=== PATIENT | female | born 1965 | race African-American/Black ===

== ENCOUNTER 2025-06-05 16:20 | Inpatient (IN) | payer BC, MEDICAID ==
[~2025-06-05] VITALS: Ht 91.4 cm; Wt 72.6 kg
[~2025-06-05 16:20] MED LIST: ASPI-1406 PO; ATOR20TA PO; COR25 PO; FURO40TA5 PO; HUM100IN SQ; HYDR50TA39 PO; ISOS60TA76 PO; NEED-122 SQ; NIFE90TA60 PO
[2025-06-05 16:24] VITALS: O2SAT 98
[2025-06-05 17:40] LABS: BASOPHILS % 0.4 % (0.0-2.0); EOSINOPHILS % 2.2 % (0.0-5.0); HEMATOCRIT. 25.8 % (36.0-48.0); HEMOGLOBIN. 8.3 g/dL (12.0-16.0); LYMPHOCYTES % 11.7 % (20.0-50.0); MEAN PLATELET VOLUME 8.1 fl (7.4-10.4); MONOCYTES % 5.9 % (2.0-8.0); NEUTROPHILS % 79.8 % (40.0-76.0); PLATELET 364 x1000/uL (130-400); RED BLOOD CELL COUNT 2.85 mill/uL (4.2-5.4); RED CELL DISTRIBUTION WIDTH 17.3 % (11.6-14.6)
[2025-06-05 18:05] LABS: CREATININE 2.9 mg/dL (0.6-1.0); UREA NITROGEN BLOOD 22 mg/dL (9-23)
[2025-06-05 18:07] LABS: ASPARTATE AMINOTRANSFERASE 14 IU/L (<34); BILIRUBIN TOTAL < 0.2 mg/dL (0.1-1.0); PROTEIN TOTAL 7.7 g/dL (6.0-8.3)
[2025-06-05] MEDS: MORPHINE SULFATE 4 MG/ML INJ (FOR IV/IM USE) IV ONE (18:14)
[2025-06-05] MEDS ORDERED: ONDANSETRON HCL 4MG/2ML INJ IV PRN (19:15)
[2025-06-05] MEDS ORDERED: DOCUSATE SODIUM 100MG CAPSULE PO PRN (19:15)
[2025-06-05] MEDS ORDERED: ACETAMINOPHEN 325MG TABLET PO PRN (19:15)
[2025-06-05] MEDS ORDERED: IPRATROPIUM/ALBUTEROL 0.5-3(2.5)MG/3ML NEB HHN PRN (19:15)
[2025-06-05] MEDS ORDERED: GUAIFENESIN 200MG/10ML SUGAR FREE UDC PO PRN (19:15)
[2025-06-05] MEDS ORDERED: SODIUM CHLORIDE 0.9% 1,000 ML IV SCH (19:15)
[2025-06-05] MEDS ORDERED: MAGNESIUM/ALUMINUM HYDROXIDE/SIMETHICONE 30ML UDC PO PRN (19:15)
[2025-06-05 20:00] VITALS: BP 161/60; PULSE 86; RESP 20; TEMP 36.3; O2SAT 97
[2025-06-05 20:54] LABS: TROPONIN I HIGH SENSITIVITY 20 ng/L (3.0-34)
[2025-06-05 20:55] LABS: PHOSPHORUS 1.7 mg/dL (2.5-4.9)
[2025-06-05] MEDS ORDERED: HYDRALAZINE 20MG/ML VIAL IV PRN (21:15)
[2025-06-05] MEDS: VANCOMYCIN 1.5GM/250ML IV SCH (21:50)
[2025-06-05] MEDS: PIPERACILLIN/TAZO 3.375G/50ML 50 ML IV SCH (21:50)
[2025-06-05] MEDS: HYDRALAZINE HCL 50MG TABLET PO SCH (21:55)
[2025-06-05] MEDS: GABAPENTIN 100MG CAPSULE PO SCH (21:56)
[2025-06-05] MEDS: CLONIDINE 0.1MG TABLET PO SCH (21:57)
[2025-06-05] MEDS: DEXTROSE 50% WATER 50ML SYRINGE IV SCH (21:58)
[2025-06-05] MEDS: INSULIN GLARGINE 100 UNITS/ML SUBCUT SCH (22:00)
[2025-06-05] MEDS ORDERED: AMLODIPINE 5MG TABLET PO SCH (22:00)
[2025-06-05] MEDS ORDERED: HYDRALAZINE HCL 100MG TABLET PO SCH (22:00)
[2025-06-05] MEDS: POTASSIUM CHLORIDE 20MEQ TABLET SR PO NR (22:01)
[2025-06-06] VITALS (7 sets, daily range): BP systolic 106–161; BP diastolic 48–80; PULSE 61–87; RESP 18–21; TEMP 36.1–37.2; O2SAT 97–99
[2025-06-06] MEDS: MORPHINE SULFATE 2 MG/ML INJ (NOT FOR IM USE) IV SCH (00:04)
[2025-06-06] MEDS: CARVEDILOL 12.5MG TABLET PO SCH (00:22)
[2025-06-06] MEDS: NIFEDIPINE XL 60MG TAB PO SCH (00:22)
[2025-06-06] MEDS: HYDROCODONE/ACETAMINOPHEN 5/325MG TABLET PO NR (06:15)
[2025-06-06] MEDS: BLOOD SUGAR DIAGNOSTIC STRIP TEST SCH (06:26)
[2025-06-06] MEDS: INSULIN LISPRO 100 UNITS/ML SUBCUT SCH (07:50)
[2025-06-06] MEDS: ASPIRIN 81MG TABLET PO SCH (09:05)
[2025-06-06] MEDS: HYDRALAZINE HCL 50MG TABLET PO SCH (09:49)
[2025-06-06] MEDS: INSULIN GLARGINE 100 UNITS/ML SUBCUT SCH (09:51)
[2025-06-06] MEDS: PIPERACILLIN/TAZO 3.375G/50ML IV SCH (10:00)
[2025-06-06] MEDS ORDERED: NALOXONE HCL 0.4MG/ML VIAL IV PRN (13:45)
[2025-06-06] MEDS: HYDROCODONE/ACETAMINOPHEN 5/325MG TABLET PO PRN (15:21)
[2025-06-06 18:30] LABS: BASOPHILS % 0.4 % (0.0-2.0); EOSINOPHILS % 3.1 % (0.0-5.0); HEMATOCRIT. 23.6 % (36.0-48.0); HEMOGLOBIN. 7.7 g/dL (12.0-16.0); LYMPHOCYTES % 10.6 % (20.0-50.0); MEAN PLATELET VOLUME 8.3 fl (7.4-10.4); MONOCYTES % 6.9 % (2.0-8.0); NEUTROPHILS % 79.0 % (40.0-76.0); PLATELET 378 x1000/uL (130-400); RED BLOOD CELL COUNT 2.62 mill/uL (4.2-5.4); RED CELL DISTRIBUTION WIDTH 16.9 % (11.6-14.6)
[2025-06-06 18:52] LABS: LDL CHOLESTEROL 88.0 mg/dL (5-100); TRIGLYCERIDE 131.0 mg/dL (0-150); UREA NITROGEN BLOOD 34.0 mg/dL (9-23)
[2025-06-06 18:54] LABS: PHOSPHORUS 3.9 mg/dL (2.5-4.9)
[2025-06-06 18:56] LABS: T4 FREE 1.22 ng/dL (0.89-1.76)
[2025-06-06 18:57] LABS: CREATININE 4.1 mg/dL (0.6-1.0)
[2025-06-06] MEDS: MORPHINE SULFATE 2 MG/ML INJ (NOT FOR IM USE) IV PRN (20:18)
[2025-06-06] MEDS ORDERED: SULFAMETHOXAZOLE/TRIMETHOPRIM 800/160MG TABLET PO SCH (21:00)
[2025-06-06] MEDS: ATORVASTATIN CALCIUM 40MG TABLET PO SCH (21:13)
[2025-06-06] MEDS ORDERED: POTASSIUM PHOSPHATE 20 MMOL in DEXT 5% WATER 243.3333 ML IV ONE (22:15)
[2025-06-06] MEDS ORDERED: POTASSIUM CHLORIDE 20MEQ/PACKET PO ONE (22:15)
[2025-06-07] VITALS (15 sets, daily range): BP systolic 108–175; BP diastolic 30–86; PULSE 62–96; RESP 16–20; TEMP 36.1–36.8; O2SAT 95–99
[2025-06-07 08:05] LABS: BASOPHILS % 0.4 % (0.0-2.0); EOSINOPHILS % 3.0 % (0.0-5.0); HEMATOCRIT. 22.7 % (36.0-48.0); HEMOGLOBIN. 7.3 g/dL (12.0-16.0); LYMPHOCYTES % 13.8 % (20.0-50.0); MEAN PLATELET VOLUME 8.3 fl (7.4-10.4); MONOCYTES % 8.9 % (2.0-8.0); NEUTROPHILS % 73.9 % (40.0-76.0); PLATELET 356 x1000/uL (130-400); RED BLOOD CELL COUNT 2.51 mill/uL (4.2-5.4); RED CELL DISTRIBUTION WIDTH 17.2 % (11.6-14.6)
[2025-06-07 08:09] LABS: CREATININE 4.7 mg/dL (0.6-1.0); UREA NITROGEN BLOOD 40 mg/dL (9-23)
[2025-06-07 08:10] LABS: TROPONIN I HIGH SENSITIVITY 18 ng/L (3.0-34)
[2025-06-07 08:11] LABS: PHOSPHORUS 4.6 mg/dL (2.5-4.9)
[2025-06-07 08:20] LABS: INR 1.0
[2025-06-07 08:44] LABS: C REACTIVE PROTEIN HIGH SENS 74.91 mg/l (<1.00)
[2025-06-07 09:04] LABS: ERYTHROCYTE SEDIMENTATION RATE 106 mm/hr (0-30)
[2025-06-07] MEDS: PANTOPRAZOLE 40MG DR TABLET PO SCH (09:59)
[2025-06-07 14:26] LABS: CLARITY URINE CLOUDY (CLEAR); COLOR URINE YELLOW (YELLOW); GLUCOSE URINE 1+ (NEGATIVE); KETONES URINE NEGATIVE (NEGATIVE); LEUKOCYTE ESTERASE URINE 1+ (NEGATIVE); NITRITE URINE NEGATIVE (NEGATIVE); OCCULT BLOOD URINE NEGATIVE (NEGATIVE); PH URINE 6.5 (4.5-8.0); PROTEIN URINE 4+ (NEGATIVE); SPECIFIC GRAVITY URINE 1.019 (1.005-1.030); UROBILINOGEN URINE 0.2 E.U./dL (0.2-1.0)
[2025-06-07 15:03] LABS: *AMPHETAMINES SCREEN URINE NEGATIVE (NEGATIVE); *BARBITURATES SCREEN URINE NEGATIVE (NEGATIVE); *BENZODIAZEPINES SCREEN URINE NEGATIVE (NEGATIVE); *COCAINE SCREEN URINE NEGATIVE (NEGATIVE); CANNABINOID URINE SCREEN NEGATIVE (NEGATIVE); ECSTASY MDMA SCREEN URINE NEGATIVE (NEGATIVE); METHADONE URINE SCREEN NEGATIVE (NEGATIVE); OPIATES URINE SCREEN PRESUMPTIVE POSITIVE (NEGATIVE); PHENCYCLIDINE URINE SCREEN NEGATIVE (NEGATIVE)
[2025-06-07 15:10] LABS: RBC URINE 0-2 /hpf (0-2); SQUAMOUS EPITHELIAL CELL URINE 3+ /lpf (RARE/1+)
[2025-06-07 15:13] LABS: BACTERIA URINE 1+; YEAST URINE 1+
[2025-06-07] MEDS: PREDNISONE 20MG TABLET PO NR (20:05)
[2025-06-07] MEDS: NIFEDIPINE XL 30MG TAB PO SCH (21:00)
[2025-06-07] MEDS: CARVEDILOL 6.25 MG TABLET PO SCH (21:00)
[2025-06-07] MEDS: EPOETIN ALFA-EPBX 4,000 UNITS/ML VIAL SUBCUT SCH (21:00)
[2025-06-07] MEDS: HYDROCODONE/ACETAMINOPHEN 10/325MG TABLET PO PRN (21:27)
[2025-06-08] VITALS: BP_SYST 168; BP_SYST 179; BP_DIAS 58; BP_DIAS 88; PULSE 84; PULSE 89; RESP 18; TEMP 36.5; TEMP 37.3; O2SAT 97; O2SAT 98
[2025-06-08] MEDS: PREDNISONE 20MG TABLET PO NR ×2 (02:16→08:16)
[2025-06-08 04:00] VITALS: BP 153/62; PULSE 78; RESP 18; TEMP 36.4; O2SAT 97
[2025-06-08 08:00] VITALS: BP 130/71; PULSE 83; RESP 20; TEMP 36.4; O2SAT 96
[2025-06-08] MEDS: DIPHENHYDRAMINE 50MG/ML VIAL IV NR (08:16)
[2025-06-08] MEDS: INSULIN REGULAR (HUMULIN R) 1000UNITS/10ML VIAL IV SCH ×2 (08:17→21:27)
[2025-06-08] MEDS: MORPHINE SULFATE 2 MG/ML INJ (NOT FOR IM USE) IV PRN (11:51)
[2025-06-08 12:30] LABS: HEMATOCRIT. 22.8 % (36.0-48.0); HEMOGLOBIN. 7.1 g/dL (12.0-16.0); MEAN PLATELET VOLUME 8.6 fl (7.4-10.4); PLATELET 322 x1000/uL (130-400); RED BLOOD CELL COUNT 2.45 mill/uL (4.2-5.4); RED CELL DISTRIBUTION WIDTH 17.3 % (11.6-14.6)
[2025-06-08 13:07] LABS: UREA NITROGEN BLOOD 33 mg/dL (9-23)
[2025-06-08 13:09] LABS: PHOSPHORUS 2.6 mg/dL (2.5-4.9)
[2025-06-08 14:48] LABS: CREATININE 4.1 mg/dL (0.6-1.0)
[2025-06-08] MEDS: HYDRALAZINE HCL 50MG TABLET PO SCH (14:51)
[2025-06-08 15:29] LABS: BAND% 5.0 % (1.0-6.0); LYMPHOCYTES % MANUAL 2.0 % (20.0-60.0); MONOCYTES % MANUAL 3.0 % (2.0-8.0); NEUTROPHILS % MANUAL 90.0 % (45.0-75.0)
[2025-06-08 15:30] LABS: PLATELET ESTIMATE NORMAL
[2025-06-08 16:00] VITALS: BP 161/67; PULSE 78; RESP 20; TEMP 36.4; O2SAT 88
[2025-06-08] MEDS: SODIUM HYPOCHLORITE 0.125% 473ML SOLUTION TOP SCH ×2 (17:05→18:29)
[2025-06-08 18:07] VITALS: BP 162/54; PULSE 81; RESP 20; TEMP 36.3; O2SAT 94
[2025-06-08] MEDS ORDERED: CALCIUM GLUCONATE 100MG/ML 10ML VIAL IV NR (18:30)
[2025-06-08] MEDS: SODIUM BICARBONATE 650MG TABLET PO NR (18:40)
[2025-06-08 20:00] VITALS: BP 139/65; PULSE 59; RESP 18; TEMP 36.3; O2SAT 87
[2025-06-09] VITALS (10 sets, daily range): BP systolic 112–166; BP diastolic 48–78; PULSE 74–88; RESP 17–21; TEMP 36.114–36.6; O2SAT 95–97
[2025-06-09] MEDS: DIPHENHYDRAMINE 50MG/ML VIAL IV PRN (00:36)
[2025-06-09] MEDS: MORPHINE SULFATE 2 MG/ML INJ (NOT FOR IM USE) IV NR (05:43)
[2025-06-09 08:25] LABS: UREA NITROGEN BLOOD 53 mg/dL (9-23)
[2025-06-09 08:27] LABS: PHOSPHORUS 4.0 mg/dL (2.5-4.9)
[2025-06-09 08:57] LABS: CREATININE 5.2 mg/dL (0.6-1.0)
[2025-06-09] MEDS: DEXTROSE 50% WATER 50ML SYRINGE IV SCH (10:00)
[2025-06-09] MEDS: INSULIN REGULAR (HUMULIN R) 1000UNITS/10ML VIAL IV SCH (10:00)
[2025-06-09] MEDS ORDERED: ALBUTEROL (0.083%) 2.5MG/3ML NEB HHN SCH (10:00)
[2025-06-09 10:15] LABS: T4 FREE 1.09 ng/dL (0.89-1.76)
[2025-06-09 10:16] LABS: TRIGLYCERIDE 65.0 mg/dL (0-150)
[2025-06-09 10:17] LABS: LDL CHOLESTEROL 82.0 mg/dL (5-100)
[2025-06-09] MEDS: SODIUM ZIRCONIUM CYCLOSILICATE 10GM/PACKET PO SCH (10:28)
[2025-06-09] MEDS: CEFTRIAXONE 1GM/50ML 50 ML IV SCH (15:40)
[2025-06-09] MEDS: HYDRALAZINE HCL 50MG TABLET PO SCH (15:40)
[2025-06-09] MEDS: EPOETIN ALFA-EPBX 4,000 UNITS/ML VIAL SUBCUT SCH (21:29)
[2025-06-09] MEDS: INSULIN GLARGINE 100 UNITS/ML SUBCUT SCH (21:40)
[2025-06-09 23:48] LABS: CREATINE KINASE MB FRACTION 1.7 ng/mL (0.5-3.6); TROPONIN I HIGH SENSITIVITY 16.0 ng/L (3.0-34)
[2025-06-10] VITALS: BP 121/58; PULSE 81; RESP 18; TEMP 36.6; O2SAT 97
[2025-06-10 04:00] VITALS: BP 120/60; PULSE 80; RESP 17; TEMP 36.6; O2SAT 98
[2025-06-10 08:00] VITALS: BP 161/53; PULSE 72; RESP 20; TEMP 35.7; O2SAT 96
[2025-06-10 08:54] LABS: BASOPHILS % 0.6 % (0.0-2.0); EOSINOPHILS % 1.6 % (0.0-5.0); HEMATOCRIT. 23.2 % (36.0-48.0); HEMOGLOBIN. 7.4 g/dL (12.0-16.0); LYMPHOCYTES % 18.6 % (20.0-50.0); MEAN PLATELET VOLUME 8.1 fl (7.4-10.4); MONOCYTES % 7.8 % (2.0-8.0); NEUTROPHILS % 71.4 % (40.0-76.0); PLATELET 367 x1000/uL (130-400); RED BLOOD CELL COUNT 2.57 mill/uL (4.2-5.4); RED CELL DISTRIBUTION WIDTH 17.4 % (11.6-14.6)
[2025-06-10 09:05] LABS: CREATINE KINASE MB FRACTION 1.2 ng/mL (0.5-3.6); TROPONIN I HIGH SENSITIVITY 18.0 ng/L (3.0-34)
[2025-06-10 09:09] LABS: CREATININE 4.6 mg/dL (0.6-1.0)
[2025-06-10 09:10] LABS: UREA NITROGEN BLOOD 43 mg/dL (9-23)
[2025-06-10 09:12] LABS: PHOSPHORUS 4.3 mg/dL (2.5-4.9)
[2025-06-10] MEDS: INSULIN GLARGINE 100 UNITS/ML SUBCUT SCH (09:59)
[2025-06-10 12:00] VITALS: BP 131/70; RESP 20; TEMP 34.2; O2SAT 95
[2025-06-10] MEDS: MORPHINE SULFATE 2 MG/ML INJ (NOT FOR IM USE) IV PRN (15:41)
[2025-06-10 16:00] VITALS: BP 125/49; PULSE 79; RESP 20; TEMP 36.3; O2SAT 97
[2025-06-10 20:00] VITALS: BP 132/63; PULSE 75; RESP 20; TEMP 36.2; O2SAT 97
[2025-06-11] VITALS (15 sets, daily range): BP systolic 128–162; BP diastolic 47–82; PULSE 57–89; RESP 16–20; TEMP 35.9–36.55848; O2SAT 95–99
[2025-06-11] MEDS: HYDROCODONE/ACETAMINOPHEN 10/325MG TABLET PO PRN (06:16)
[2025-06-11] MEDS: FAMOTIDINE 20MG TABLET PO SCH (08:35)
[2025-06-11 08:58] LABS: PLATELET 384 x1000/uL (130-400); RED BLOOD CELL COUNT 2.54 mill/uL (4.2-5.4); RED CELL DISTRIBUTION WIDTH 17.4 % (11.6-14.6)
[2025-06-11 09:20] LABS: UREA NITROGEN BLOOD 57 mg/dL (9-23)
[2025-06-11 09:23] LABS: PHOSPHORUS 5.5 mg/dL (2.5-4.9)
[2025-06-11 09:26] LABS: CREATININE 6.0 mg/dL (0.6-1.0)
[2025-06-11] MEDS: SODIUM ZIRCONIUM CYCLOSILICATE 10GM/PACKET PO NR (10:23)
[2025-06-11] MEDS ORDERED: SODIUM ZIRCONIUM CYCLOSILICATE 10GM/PACKET PO SCH (10:30)
[2025-06-11] MEDS: POLYETHYLENE GLYCOL 3350 (17GM) 1 DOSE PACK PO SCH (21:00)
[2025-06-12] VITALS: BP 170/60; PULSE 86; RESP 19; TEMP 36.6; O2SAT 97
[2025-06-12 04:00] VITALS: BP 164/81; PULSE 83; RESP 17; TEMP 37.1; O2SAT 98
[2025-06-12] MEDS: DEXTROSE 50% WATER 50ML SYRINGE IV PRN (06:36)
[2025-06-12 08:00] VITALS: BP 167/66; PULSE 81; RESP 20; TEMP 36.1; O2SAT 100
[2025-06-12] MEDS: NIFEDIPINE XL 30MG TAB PO SCH (08:59)
[2025-06-12] MEDS ORDERED: REGADENOSON 0.4 MG/5 ML IV NR (11:30)
[2025-06-12 12:00] VITALS: BP 181/63; PULSE 77; RESP 20; TEMP 36.3; O2SAT 100
[2025-06-12 16:00] VITALS: BP 177/70; PULSE 72; RESP 20; TEMP 36.3; O2SAT 100
[2025-06-12 19:07] LABS: BASOPHILS % 0.6 % (0.0-2.0); EOSINOPHILS % 3.2 % (0.0-5.0); HEMATOCRIT. 22.4 % (36.0-48.0); HEMOGLOBIN. 7.1 g/dL (12.0-16.0); LYMPHOCYTES % 11.7 % (20.0-50.0); MEAN PLATELET VOLUME 8.0 fl (7.4-10.4); MONOCYTES % 8.0 % (2.0-8.0); NEUTROPHILS % 76.5 % (40.0-76.0); PLATELET 355 x1000/uL (130-400); RED BLOOD CELL COUNT 2.43 mill/uL (4.2-5.4); RED CELL DISTRIBUTION WIDTH 17.4 % (11.6-14.6)
[2025-06-12 19:21] LABS: UREA NITROGEN BLOOD 47.0 mg/dL (9-23)
[2025-06-12 19:39] LABS: CREATININE 5.1 mg/dL (0.6-1.0)
[2025-06-12 20:00] VITALS: BP 136/68; PULSE 92; RESP 20; TEMP 36.3; O2SAT 100
[2025-06-12] MEDS: NIFEDIPINE XL 60MG TAB PO SCH (21:10)
[2025-06-12] MEDS: INSULIN GLARGINE 100 UNITS/ML SUBCUT SCH (22:00)
[2025-06-13] VITALS (21 sets, daily range): BP systolic 101–161; BP diastolic 37–86; PULSE 76–99; RESP 16–20; TEMP 35.8–36.9474; O2SAT 95–98
[2025-06-13 06:50] LABS: BASOPHILS % 0.5 % (0.0-2.0); EOSINOPHILS % 3.3 % (0.0-5.0); HEMATOCRIT. 21.6 % (36.0-48.0); LYMPHOCYTES % 11.8 % (20.0-50.0); MEAN PLATELET VOLUME 8.2 fl (7.4-10.4); MONOCYTES % 7.4 % (2.0-8.0); NEUTROPHILS % 77.0 % (40.0-76.0); PLATELET 341 x1000/uL (130-400); RED BLOOD CELL COUNT 2.36 mill/uL (4.2-5.4); RED CELL DISTRIBUTION WIDTH 17.5 % (11.6-14.6)
[2025-06-13 07:22] LABS: UREA NITROGEN BLOOD 48.0 mg/dL (9-23)
[2025-06-13 07:24] LABS: CREATININE 5.5 mg/dL (0.6-1.0)
[2025-06-13 07:48] LABS: HEMOGLOBIN. 7.0 g/dL (12.0-16.0)
[2025-06-13] MEDS ORDERED: REGADENOSON 0.4 MG/5 ML IV ONE (08:22)
[2025-06-13] MEDS: NIFEDIPINE XL 60MG TAB PO SCH (09:00)
[2025-06-13] MEDS: INSULIN GLARGINE 100 UNITS/ML SUBCUT SCH (10:00)
[2025-06-13 12:24] LABS: HEPATITIS A AB IGM NEGATIVE (Negative); HEPATITIS B CORE AB IGM NEGATIVE (Negative)
[2025-06-13 12:25] LABS: HEPATITIS C AB NON REACTIVE (Neg) (Negative)
[2025-06-13] MEDS: HYDRALAZINE HCL 100MG TABLET PO SCH (22:32)
[2025-06-13] MEDS: DIPHENHYDRAMINE 50MG/ML VIAL IV NR (22:57)
[2025-06-14] VITALS (24 sets, daily range): BP systolic 129–201; BP diastolic 60–109; PULSE 86–95; RESP 16–20; TEMP 35.8–36.7; O2SAT 97–98
[2025-06-14] MEDS: INSULIN LISPRO 100 UNITS/ML SUBCUT SCH
[2025-06-14] MEDS: DEXT 5%/0.9% NACL 1,000 ML IV SCH
[2025-06-14] MEDS: BLOOD SUGAR DIAGNOSTIC STRIP TEST SCH (00:33)
[2025-06-14] MEDS: HYDRALAZINE 10 MG in SODIUM CHLORIDE 0.9% 49.5 ML IV PRN (04:40)
[2025-06-14] MEDS ORDERED: POLYMYXIN B SULFATE 500000 UNITS/VIAL ONE (07:15)
[2025-06-14] MEDS ORDERED: LIDOCAINE HCL/EPINEPHRINE 1%-EPI 1:100,000 20ML VIAL ONE (07:16)
[2025-06-14] MEDS ORDERED: BACITRACIN 14GM TUBE TOP ONE (07:16)
[2025-06-14] MEDS ORDERED: DOPAMINE 400MG/250ML PREMIX 250 ML IV ONE (07:26)
[2025-06-14 07:32] LABS: CREATININE 4.5 mg/dL (0.6-1.0); UREA NITROGEN BLOOD 26 mg/dL (9-23)
[2025-06-14 07:34] LABS: PHOSPHORUS 6.3 mg/dL (2.5-4.9)
[2025-06-14 08:53] LABS: BASOPHILS % 0.8 % (0.0-2.0); EOSINOPHILS % 2.0 % (0.0-5.0); HEMATOCRIT. 30.3 % (36.0-48.0); HEMOGLOBIN. 10.2 g/dL (12.0-16.0); LYMPHOCYTES % 10.3 % (20.0-50.0); MEAN PLATELET VOLUME 8.1 fl (7.4-10.4); MONOCYTES % 7.3 % (2.0-8.0); NEUTROPHILS % 79.6 % (40.0-76.0); PLATELET 360 x1000/uL (130-400); RED BLOOD CELL COUNT 3.54 mill/uL (4.2-5.4); RED CELL DISTRIBUTION WIDTH 20.5 % (11.6-14.6)
[2025-06-14] MEDS: SODIUM POLYSTYRENE SULFONATE 15 G/60 ML BOT PO NR (10:23)
[2025-06-14] MEDS: LACTULOSE 20G/30ML UDC PO SCH (10:23)
[2025-06-14] MEDS ORDERED: LIDOCAINE HCL 1% 10 MG/ML 10ML VIAL IJ SCH (12:00)
[2025-06-14] MEDS: ACETAMINOPHEN 325MG TABLET PO PRN (12:23)
[2025-06-14] MEDS ORDERED: HYDRALAZINE 20MG/ML VIAL IV PRN (15:30)
[2025-06-14] MEDS: SEVELAMER CARBONATE 800 MG TABLET PO SCH (15:35)
[2025-06-15] VITALS: BP 198/98; PULSE 92; RESP 18; TEMP 36.7; O2SAT 98
[2025-06-15 04:00] VITALS: BP 160/85; PULSE 100; RESP 18; TEMP 36.8; O2SAT 96
[2025-06-15 07:20] LABS: PLATELET 327 x1000/uL (130-400); RED BLOOD CELL COUNT 3.51 mill/uL (4.2-5.4); RED CELL DISTRIBUTION WIDTH 20.4 % (11.6-14.6)
[2025-06-15 07:37] LABS: CREATININE 3.2 mg/dL (0.6-1.0); UREA NITROGEN BLOOD 19 mg/dL (9-23)
[2025-06-15 07:39] LABS: PHOSPHORUS 4.0 mg/dL (2.5-4.9)
[2025-06-15 08:07] VITALS: BP 138/70; PULSE 100; RESP 20; TEMP 36.8; O2SAT 100
[2025-06-15] MEDS: POTASSIUM CHLORIDE 20MEQ/PACKET PO NR (08:21)
[2025-06-15] MEDS ORDERED: *PATIENT'S OWN MEDICATION STORAGE XX SCH (09:30)
[2025-06-15 12:00] VITALS: BP 179/89; PULSE 97; RESP 20; TEMP 36.7; O2SAT 100
[2025-06-15] MEDS: CEFTRIAXONE 2GM/50ML 50 ML IV SCH (13:19)
[2025-06-15 16:00] VITALS: BP 173/74; PULSE 100; RESP 20; TEMP 36.9; O2SAT 97
[2025-06-15 16:51] LABS: CREATININE 3.5 mg/dL (0.6-1.0); UREA NITROGEN BLOOD 20.0 mg/dL (9-23)
[2025-06-15 20:00] VITALS: BP 198/82; PULSE 97; RESP 21; TEMP 36.6; O2SAT 99
[2025-06-15] MEDS: MORPHINE SULFATE 2 MG/ML INJ (NOT FOR IM USE) IV PRN (20:27)
[2025-06-16] VITALS (11 sets, daily range): BP systolic 132–193; BP diastolic 66–101; PULSE 90–110; RESP 18–20; TEMP 36.5–36.8; O2SAT 96–99
[2025-06-16] MEDS: DIPHENHYDRAMINE 50MG/ML VIAL IV PRN (00:58)
[2025-06-16] MEDS: HYDRALAZINE 10 MG in SODIUM CHLORIDE 0.9% 49.5 ML IV PRN (04:28)
[2025-06-16 06:35] LABS: HEMATOCRIT. 28.1 % (36.0-48.0); HEMOGLOBIN. 9.2 g/dL (12.0-16.0); MEAN PLATELET VOLUME 8.1 fl (7.4-10.4); PLATELET 331 x1000/uL (130-400); RED BLOOD CELL COUNT 3.22 mill/uL (4.2-5.4); RED CELL DISTRIBUTION WIDTH 19.6 % (11.6-14.6)
[2025-06-16 07:06] LABS: CREATININE 4.5 mg/dL (0.6-1.0); UREA NITROGEN BLOOD 26 mg/dL (9-23)
[2025-06-16 07:08] LABS: PHOSPHORUS 5.6 mg/dL (2.5-4.9)
[2025-06-16] MEDS: CARVEDILOL 12.5MG TABLET PO SCH (08:39)
[2025-06-16 10:02] LABS: BAND% 4.0 % (1.0-6.0); EOSINOPHILS % MANUAL 2.0 % (0.0-5.0); LYMPHOCYTES % MANUAL 5.0 % (20.0-60.0); MONOCYTES % MANUAL 9.0 % (2.0-8.0); NEUTROPHILS % MANUAL 80.0 % (45.0-75.0); PLATELET ESTIMATE NORMAL
[2025-06-16] MEDS: HYDRALAZINE 20MG/ML VIAL IV PRN (17:39)
[2025-06-16] MEDS: HYDRALAZINE 20MG/ML VIAL IV SCH (19:01)
[2025-06-17] VITALS: BP 166/88; PULSE 95; RESP 18; TEMP 36.7; O2SAT 100
[2025-06-17 06:00] VITALS: BP 151/91; PULSE 102; RESP 20; TEMP 36.6; O2SAT 100
[2025-06-17 07:29] LABS: BASOPHILS % 0.4 % (0.0-2.0); EOSINOPHILS % 2.0 % (0.0-5.0); HEMATOCRIT. 25.5 % (36.0-48.0); HEMOGLOBIN. 8.4 g/dL (12.0-16.0); LYMPHOCYTES % 8.9 % (20.0-50.0); MEAN PLATELET VOLUME 8.1 fl (7.4-10.4); MONOCYTES % 12.5 % (2.0-8.0); NEUTROPHILS % 76.2 % (40.0-76.0); PLATELET 278 x1000/uL (130-400); RED BLOOD CELL COUNT 2.92 mill/uL (4.2-5.4); RED CELL DISTRIBUTION WIDTH 19.7 % (11.6-14.6)
[2025-06-17 07:42] LABS: CREATININE 4.5 mg/dL (0.6-1.0); UREA NITROGEN BLOOD 25.0 mg/dL (9-23)
[2025-06-17 07:44] LABS: PHOSPHORUS 5.2 mg/dL (2.5-4.9)
[2025-06-17 08:25] VITALS: BP 136/66; PULSE 96; RESP 18; TEMP 37; O2SAT 96
[2025-06-17 11:37] VITALS: BP 136/82; PULSE 82; RESP 18; TEMP 36.4; O2SAT 98
[2025-06-17 16:04] VITALS: BP 112/86; PULSE 92; RESP 18; TEMP 36.6; O2SAT 99
[2025-06-17 20:00] VITALS: BP 168/77; PULSE 65; RESP 19; TEMP 36.5; O2SAT 99
[2025-06-17] MEDS: EPOETIN ALFA-EPBX 4,000 UNITS/ML VIAL SUBCUT SCH (21:25)
[2025-06-18] VITALS (15 sets, daily range): BP systolic 105–202; BP diastolic 48–88; PULSE 72–89; RESP 16–48; TEMP 36.3918–36.7; O2SAT 97–99
[2025-06-18 06:56] LABS: BASOPHILS % 0.6 % (0.0-2.0); EOSINOPHILS % 1.8 % (0.0-5.0); HEMATOCRIT. 24.1 % (36.0-48.0); HEMOGLOBIN. 7.9 g/dL (12.0-16.0); LYMPHOCYTES % 11.8 % (20.0-50.0); MEAN PLATELET VOLUME 8.2 fl (7.4-10.4); MONOCYTES % 12.9 % (2.0-8.0); NEUTROPHILS % 72.9 % (40.0-76.0); PLATELET 242 x1000/uL (130-400); RED BLOOD CELL COUNT 2.74 mill/uL (4.2-5.4); RED CELL DISTRIBUTION WIDTH 19.6 % (11.6-14.6)
[2025-06-18 07:07] LABS: UREA NITROGEN BLOOD 34 mg/dL (9-23)
[2025-06-18 07:09] LABS: PHOSPHORUS 6.1 mg/dL (2.5-4.9)
[2025-06-18 07:32] LABS: CREATININE 5.6 mg/dL (0.6-1.0)
[2025-06-18] MEDS: MORPHINE SULFATE 2 MG/ML INJ (NOT FOR IM USE) IV PRN ×2 (09:15→13:07)
[2025-06-18 23:23] LABS: PLATELET 257 x1000/uL (130-400); RED BLOOD CELL COUNT 3.52 mill/uL (4.2-5.4); RED CELL DISTRIBUTION WIDTH 20.3 % (11.6-14.6)
[2025-06-18 23:26] LABS: CREATININE 4.2 mg/dL (0.6-1.0); UREA NITROGEN BLOOD 23.0 mg/dL (9-23)
[2025-06-19] VITALS (7 sets, daily range): BP systolic 150–192; BP diastolic 58–96; PULSE 86–93; RESP 18–20; TEMP 36.4–36.7; O2SAT 97–100
[2025-06-19] MEDS: KCL 10MEQ/50ML PREMIX 50 ML IV NR (01:45)
[2025-06-19 04:49] LABS: HEMATOCRIT. 30.1 % (36.0-48.0); HEMOGLOBIN. 9.7 g/dL (12.0-16.0); MEAN PLATELET VOLUME 7.8 fl (7.4-10.4); PLATELET 255 x1000/uL (130-400); RED BLOOD CELL COUNT 3.54 mill/uL (4.2-5.4); RED CELL DISTRIBUTION WIDTH 20.3 % (11.6-14.6)
[2025-06-19 05:12] LABS: CREATININE 4.4 mg/dL (0.6-1.0); UREA NITROGEN BLOOD 23 mg/dL (9-23)
[2025-06-19 05:14] LABS: PHOSPHORUS 4.1 mg/dL (2.5-4.9)
[2025-06-19 05:58] LABS: INR 1.1
[2025-06-19] MEDS ORDERED: LIDOCAINE HCL/EPINEPHRINE 1%-EPI 1:100,000 20ML VIAL ONE (07:29)
[2025-06-19] MEDS ORDERED: BUPIVACAINE HCL/PF 0.5% (5MG/ML) 10ML ONE (07:29)
[2025-06-19] MEDS ORDERED: DOPAMINE 400MG/250ML PREMIX 250 ML IV ONE (07:52)
[2025-06-19] MEDS ORDERED: DEXTROSE 50% WATER 50ML SYRINGE IV ONE (08:04)
[2025-06-19] MEDS ORDERED: ROCURONIUM BROMIDE 10MG/ML VIAL 5ML IV ONE (08:21)
[2025-06-19] MEDS ORDERED: FENTANYL CITRATE/PF 50MCG/ML 2ML VIAL ONE (08:21)
[2025-06-19] MEDS ORDERED: HYDROMORPHONE HCL/PF 1MG/ML INJ ONE (08:57)
[2025-06-19] MEDS ORDERED: GLYCOPYRROLATE 0.2MG/ML VIAL 5ML IV PRN (10:30)
[2025-06-19] MEDS ORDERED: DEXAMETHASONE 4MG/ML 1ML VIAL IV PRN (10:30)
[2025-06-19] MEDS ORDERED: HYDRALAZINE 20MG/ML VIAL IV PRN (10:30)
[2025-06-19] MEDS ORDERED: ONDANSETRON HCL 4MG/2ML INJ IV PRN (10:30)
[2025-06-19] MEDS ORDERED: LABETALOL 5MG/ML 4ML INJ IV PRN (10:30)
[2025-06-19] MEDS: HYDROMORPHONE HCL/PF 1MG/ML INJ IV PRN (10:57)
[2025-06-19 16:36] LABS: EOSINOPHILS % MANUAL 1.0 % (0.0-5.0); LYMPHOCYTES % MANUAL 2.0 % (20.0-60.0); MONOCYTES % MANUAL 10.0 % (2.0-8.0); NEUTROPHILS % MANUAL 87.0 % (45.0-75.0); PLATELET ESTIMATE NORMAL
[2025-06-20] VITALS (12 sets, daily range): BP systolic 100–215; BP diastolic 57–98; PULSE 65–96; RESP 16–20; TEMP 36.55848–37; O2SAT 81–100
[2025-06-20 07:36] LABS: HEMATOCRIT. 27.1 % (36.0-48.0); HEMOGLOBIN. 8.9 g/dL (12.0-16.0); MEAN PLATELET VOLUME 8.1 fl (7.4-10.4); PLATELET 229 x1000/uL (130-400); RED BLOOD CELL COUNT 3.14 mill/uL (4.2-5.4); RED CELL DISTRIBUTION WIDTH 20.7 % (11.6-14.6)
[2025-06-20 07:44] LABS: UREA NITROGEN BLOOD 29.0 mg/dL (9-23)
[2025-06-20 08:54] LABS: CREATININE 5.3 mg/dL (0.6-1.0)
[2025-06-20 12:01] LABS: BAND% 5.0 % (1.0-6.0); LYMPHOCYTES % MANUAL 4.0 % (20.0-60.0); MONOCYTES % MANUAL 6.0 % (2.0-8.0); NEUTROPHILS % MANUAL 85.0 % (45.0-75.0)
[2025-06-20 12:02] LABS: PLATELET ESTIMATE NORMAL
[2025-06-21] VITALS: BP_SYST 116; BP_SYST 123; BP_DIAS 58; BP_DIAS 60; PULSE 72; PULSE 96; RESP 18; RESP 19; TEMP 36.2; TEMP 36.4; O2SAT 100; O2SAT 94
[2025-06-21 04:00] VITALS: BP 143/56; PULSE 90; RESP 17; TEMP 37; O2SAT 99
[2025-06-21 08:00] VITALS: BP 140/110; PULSE 84; RESP 18; RESP 22; TEMP 36.6; O2SAT 99
[2025-06-21 10:58] LABS: HEMATOCRIT. 27.7 % (36.0-48.0); HEMOGLOBIN. 8.7 g/dL (12.0-16.0); MEAN PLATELET VOLUME 7.9 fl (7.4-10.4); PLATELET 243 x1000/uL (130-400); RED BLOOD CELL COUNT 3.18 mill/uL (4.2-5.4); RED CELL DISTRIBUTION WIDTH 21.5 % (11.6-14.6)
[2025-06-21 11:01] LABS: UREA NITROGEN BLOOD 29.0 mg/dL (9-23)
[2025-06-21 11:04] LABS: PHOSPHORUS 5.2 mg/dL (2.5-4.9)
[2025-06-21 11:33] LABS: CREATININE 5.4 mg/dL (0.6-1.0)
[2025-06-21 12:00] VITALS: BP 128/45; PULSE 80; RESP 18; TEMP 36.9; O2SAT 98
[2025-06-21] MEDS ORDERED: NALOXONE HCL 0.4MG/ML VIAL IV PRN (13:15)
[2025-06-21 16:00] VITALS: BP 115/52; PULSE 76; RESP 18; TEMP 36.1; O2SAT 98
[2025-06-21 17:08] LABS: LYMPHOCYTES % MANUAL 11.0 % (20.0-60.0); MONOCYTES % MANUAL 6.0 % (2.0-8.0); NEUTROPHILS % MANUAL 83.0 % (45.0-75.0); PLATELET ESTIMATE NORMAL
[2025-06-21 20:00] VITALS: BP 108/59; PULSE 71; RESP 16; TEMP 37; O2SAT 98
[2025-06-22] VITALS: BP 123/60; PULSE 72; RESP 19; TEMP 36.4; O2SAT 100
[2025-06-22 04:00] VITALS: BP 113/72; PULSE 64; RESP 18; TEMP 36.2; O2SAT 99
[2025-06-22 08:00] VITALS: BP 128/57; PULSE 79; RESP 19; TEMP 35.8
[2025-06-22 12:00] VITALS: BP 137/56; PULSE 73; RESP 20; TEMP 36.4; O2SAT 96
[2025-06-22] MEDS: HYDRALAZINE HCL 50MG TABLET PO SCH (14:04)
[2025-06-22 16:00] VITALS: BP 134/57; PULSE 85; RESP 19; TEMP 36; O2SAT 97
[2025-06-22 20:00] VITALS: BP 128/51; PULSE 71; RESP 17; TEMP 36.3; O2SAT 98
[2025-06-23] VITALS (12 sets, daily range): BP systolic 124–191; BP diastolic 56–130; PULSE 67–85; RESP 17–18; TEMP 36.3–36.9; O2SAT 95–98
[2025-06-23 10:03] LABS: BASOPHILS % 0.4 % (0.0-2.0); EOSINOPHILS % 1.4 % (0.0-5.0); HEMATOCRIT. 29.9 % (36.0-48.0); HEMOGLOBIN. 9.4 g/dL (12.0-16.0); LYMPHOCYTES % 8.1 % (20.0-50.0); MEAN PLATELET VOLUME 7.9 fl (7.4-10.4); MONOCYTES % 3.7 % (2.0-8.0); NEUTROPHILS % 86.4 % (40.0-76.0); PLATELET 283 x1000/uL (130-400); RED BLOOD CELL COUNT 3.43 mill/uL (4.2-5.4); RED CELL DISTRIBUTION WIDTH 20.9 % (11.6-14.6)
[2025-06-23 10:17] LABS: UREA NITROGEN BLOOD 34.0 mg/dL (9-23)
[2025-06-23 10:34] LABS: CREATININE 5.6 mg/dL (0.6-1.0)
[2025-06-23] MEDS: HYDRALAZINE HCL 100MG TABLET PO SCH (13:33)
[2025-06-23] MEDS: TRAMADOL HCL/ACETAMINOPHEN 37.5/325MG TABLET PO PRN (17:47)
[2025-06-24] VITALS: BP 156/63; PULSE 74; RESP 17; TEMP 36.3; O2SAT 96
[2025-06-24 09:18] VITALS: BP 145/76; PULSE 69; RESP 18; TEMP 36.4; O2SAT 97
[2025-06-24 12:00] VITALS: BP 131/60; PULSE 67; RESP 18; TEMP 36.4; O2SAT 99
[2025-06-24 16:00] VITALS: BP 136/62; PULSE 69; RESP 18; TEMP 36.4; O2SAT 98
[2025-06-24 20:00] VITALS: BP 127/77; PULSE 73; RESP 17; TEMP 35.8; O2SAT 97
[2025-06-25] VITALS: BP 129/69; PULSE 74; RESP 17; TEMP 36; O2SAT 99
[2025-06-25 04:00] VITALS: BP 161/72; PULSE 76; RESP 17; TEMP 36.5; O2SAT 95
[2025-06-25] MEDS: IOHEXOL-350 100 ML BOTTLE ONE (07:50)
[2025-06-25] MEDS: LIDOCAINE HCL 1% 10 MG/ML 10ML VIAL ONE ×2 (07:50)
[2025-06-25 08:00] VITALS: BP 151/50; PULSE 77; RESP 19; TEMP 36.4; O2SAT 97
[2025-06-25 12:00] VITALS: BP 131/63; PULSE 74; RESP 19; TEMP 36.5; O2SAT 99
[2025-06-25 16:00] VITALS: BP 147/62; PULSE 74; RESP 19; TEMP 36.6; O2SAT 99
[2025-06-25 20:00] VITALS: BP 164/74; PULSE 76; RESP 19; TEMP 36.9; O2SAT 97
[2025-06-26] VITALS (8 sets, daily range): BP systolic 100–163; BP diastolic 54–67; PULSE 55–76; RESP 17–20; TEMP 36.1–36.6; O2SAT 95–100
[2025-06-26] MEDS: DULOXETINE HCL 30MG DR CAPSULE PO SCH (15:20)
[2025-06-26] MEDS: ACETAMINOPHEN 1000MG/100ML 100 ML IV SCH (23:50)
[2025-06-27] VITALS (13 sets, daily range): BP systolic 76–160; BP diastolic 35–76; PULSE 69–80; RESP 17–20; TEMP 36.1–36.6696; O2SAT 95–97
[2025-06-27] MEDS: LIDOCAINE HCL/PF 2% 20MG/ML 5 ML/VIAL INJ SCH
[2025-06-28] VITALS (8 sets, daily range): BP systolic 100–201; BP diastolic 67–84; PULSE 68–88; RESP 17–24; TEMP 36.3–36.9; O2SAT 95–98
[2025-06-28 13:26] LABS: BASOPHILS % 0.3 % (0.0-2.0); EOSINOPHILS % 0.6 % (0.0-5.0); HEMATOCRIT. 31.6 % (36.0-48.0); HEMOGLOBIN. 9.9 g/dL (12.0-16.0); LYMPHOCYTES % 7.2 % (20.0-50.0); MEAN PLATELET VOLUME 7.6 fl (7.4-10.4); MONOCYTES % 7.0 % (2.0-8.0); NEUTROPHILS % 84.9 % (40.0-76.0); PLATELET 286 x1000/uL (130-400); RED BLOOD CELL COUNT 3.62 mill/uL (4.2-5.4); RED CELL DISTRIBUTION WIDTH 21.5 % (11.6-14.6)
[2025-06-28 13:38] LABS: CREATININE 4.4 mg/dL (0.6-1.0); UREA NITROGEN BLOOD 32 mg/dL (9-23)
[2025-06-28 13:40] LABS: ASPARTATE AMINOTRANSFERASE 10 IU/L (<34); BILIRUBIN DIRECT < 0.1 mg/dL (<=3.0); BILIRUBIN TOTAL < 0.2 mg/dL (0.1-1.0); PHOSPHORUS 2.9 mg/dL (2.5-4.9); PROTEIN TOTAL 6.8 g/dL (6.0-8.3)
[2025-06-28] MEDS: ACETAMINOPHEN 325MG TABLET PO SCH (17:00)
[2025-06-28 17:53] LABS: INR 1.1
[2025-06-28] MEDS ORDERED: NALOXONE HCL 0.4MG/ML VIAL IV PRN (20:30)
[2025-06-28] MEDS: TRAMADOL HCL/ACETAMINOPHEN 37.5/325MG TABLET PO PRN (20:35)
[2025-06-29] VITALS (12 sets, daily range): BP systolic 136–177; BP diastolic 64–92; PULSE 69–86; RESP 17–22; TEMP 36.28068–36.83628; O2SAT 97–100
[2025-06-29 10:59] LABS: HEMATOCRIT. 30.1 % (36.0-48.0); HEMOGLOBIN. 9.6 g/dL (12.0-16.0); MEAN PLATELET VOLUME 7.8 fl (7.4-10.4); PLATELET 270 x1000/uL (130-400); RED BLOOD CELL COUNT 3.49 mill/uL (4.2-5.4); RED CELL DISTRIBUTION WIDTH 21.7 % (11.6-14.6)
[2025-06-29 11:11] LABS: CREATININE 4.8 mg/dL (0.6-1.0); UREA NITROGEN BLOOD 40.0 mg/dL (9-23)
[2025-06-29 18:19] LABS: EOSINOPHILS % MANUAL 1.0 % (0.0-5.0); LYMPHOCYTES % MANUAL 4.0 % (20.0-60.0); MONOCYTES % MANUAL 6.0 % (2.0-8.0); NEUTROPHILS % MANUAL 89.0 % (45.0-75.0); PLATELET ESTIMATE NORMAL
[2025-06-29] MEDS: MORPHINE SULFATE 2 MG/ML INJ (NOT FOR IM USE) IV SCH (21:03)
[2025-06-29] MEDS: HYDROMORPHONE HCL/PF 2MG/ML INJ IM SCH (21:30)
[2025-06-30] VITALS: BP 150/60; PULSE 73; RESP 18; TEMP 36.2; O2SAT 99
[2025-06-30 04:00] VITALS: BP 166/76; PULSE 73; RESP 18; TEMP 36.3; O2SAT 98
[2025-06-30 08:00] VITALS: BP 155/63; PULSE 74; RESP 19; TEMP 36.2; O2SAT 100
[2025-06-30] MEDS: MORPHINE SULFATE 2 MG/ML INJ (NOT FOR IM USE) IV NR (10:31)
[2025-06-30 12:00] VITALS: BP 158/79; PULSE 74; RESP 18; TEMP 36.2; O2SAT 98
[2025-06-30] MEDS ORDERED: DEXTROSE 50% WATER 50ML SYRINGE IV PRN (13:15)
[2025-06-30] MEDS: INSULIN LISPRO 100 UNITS/ML SUBCUT SCH (13:28)
[2025-06-30 16:00] VITALS: BP 143/57; PULSE 77; RESP 18; TEMP 36.1; O2SAT 96
[2025-06-30] MEDS ORDERED: BLOOD SUGAR DIAGNOSTIC STRIP TEST SCH (17:20)
[2025-06-30] MEDS ORDERED: OXYCODONE HCL 5MG TABLET PO PRN (19:30)
[2025-06-30 20:00] VITALS: BP 148/73; PULSE 83; RESP 18; TEMP 36.6; O2SAT 97
[2025-06-30] MEDS: EPOETIN ALFA-EPBX 4,000 UNITS/ML VIAL SUBCUT SCH (21:16)
[2025-06-30] MEDS: OXYCODONE HCL 5MG TABLET PO PRN (23:49)
[2025-07-01] VITALS (12 sets, daily range): BP systolic 84–162; BP diastolic 45–82; PULSE 69–88; RESP 18–20; TEMP 36.1–36.8; O2SAT 95–100
[2025-07-01] MEDS: HYDROMORPHONE HCL/PF 1MG/ML INJ IV SCH (04:39)
[2025-07-01 06:29] LABS: CREATININE 4.3 mg/dL (0.6-1.0); UREA NITROGEN BLOOD 36.0 mg/dL (9-23)
[2025-07-01 06:31] LABS: HEMATOCRIT. 30.7 % (36.0-48.0); HEMOGLOBIN. 9.7 g/dL (12.0-16.0); MEAN PLATELET VOLUME 7.9 fl (7.4-10.4); PHOSPHORUS 3.7 mg/dL (2.5-4.9); PLATELET 272 x1000/uL (130-400); RED BLOOD CELL COUNT 3.56 mill/uL (4.2-5.4); RED CELL DISTRIBUTION WIDTH 22.3 % (11.6-14.6)
[2025-07-01 13:14] LABS: BAND% 4.0 % (1.0-6.0); LYMPHOCYTES % MANUAL 7.0 % (20.0-60.0); MONOCYTES % MANUAL 9.0 % (2.0-8.0); NEUTROPHILS % MANUAL 80.0 % (45.0-75.0)
[2025-07-01 13:15] LABS: PLATELET ESTIMATE NORMAL
[2025-07-01] MEDS: CEFTRIAXONE 2GM/50ML 50 ML IV SCH (18:24)
[2025-07-02] VITALS: BP 130/89; PULSE 83; RESP 17; TEMP 36.2; O2SAT 100
[2025-07-02 04:00] VITALS: BP 146/69; PULSE 87; RESP 17; TEMP 36.1; O2SAT 95
[2025-07-02 07:54] LABS: HEMATOCRIT. 30.3 % (36.0-48.0); HEMOGLOBIN. 9.7 g/dL (12.0-16.0); MEAN PLATELET VOLUME 7.9 fl (7.4-10.4); PLATELET 306 x1000/uL (130-400); RED BLOOD CELL COUNT 3.51 mill/uL (4.2-5.4); RED CELL DISTRIBUTION WIDTH 22.1 % (11.6-14.6)
[2025-07-02 08:00] VITALS: BP 162/76; PULSE 92; RESP 19; TEMP 36.2; O2SAT 98
[2025-07-02 08:05] LABS: CREATININE 3.6 mg/dL (0.6-1.0); UREA NITROGEN BLOOD 25 mg/dL (9-23)
[2025-07-02 08:07] LABS: PHOSPHORUS 2.8 mg/dL (2.5-4.9)
[2025-07-02 12:00] VITALS: BP 154/79; PULSE 85; RESP 19; TEMP 36.6; O2SAT 95
[2025-07-02 16:00] VITALS: BP 145/70; PULSE 91; RESP 19; TEMP 36.3; O2SAT 95
[2025-07-02 16:32] LABS: LYMPHOCYTES % MANUAL 6.0 % (20.0-60.0); MONOCYTES % MANUAL 9.0 % (2.0-8.0); NEUTROPHILS % MANUAL 85.0 % (45.0-75.0); PLATELET ESTIMATE NORMAL
[2025-07-02 20:00] VITALS: BP 148/69; PULSE 95; RESP 18; TEMP 36.5; O2SAT 95
[2025-07-02] MEDS: NIFEDIPINE XL 90MG TAB PO SCH (21:34)
[2025-07-03] VITALS (12 sets, daily range): BP systolic 115–170; BP diastolic 55–82; PULSE 52–97; RESP 16–19; TEMP 36.2–36.8; O2SAT 95–100
[2025-07-03] MEDS ORDERED: DEXTROSE 50% WATER 50ML SYRINGE IV PRN (00:30)
[2025-07-03] MEDS: INSULIN LISPRO 100 UNITS/ML SUBCUT SCH (01:17)
[2025-07-03 06:59] LABS: CREATININE 4.2 mg/dL (0.6-1.0)
[2025-07-03 07:01] LABS: UREA NITROGEN BLOOD 33 mg/dL (9-23)
[2025-07-03 07:03] LABS: HEMATOCRIT. 28.6 % (36.0-48.0); HEMOGLOBIN. 9.0 g/dL (12.0-16.0); MEAN PLATELET VOLUME 7.9 fl (7.4-10.4); PHOSPHORUS 2.9 mg/dL (2.5-4.9); PLATELET 318 x1000/uL (130-400); RED BLOOD CELL COUNT 3.33 mill/uL (4.2-5.4); RED CELL DISTRIBUTION WIDTH 21.6 % (11.6-14.6)
[2025-07-03 17:20] LABS: EOSINOPHILS % MANUAL 1.0 % (0.0-5.0); LYMPHOCYTES % MANUAL 10.0 % (20.0-60.0); MONOCYTES % MANUAL 8.0 % (2.0-8.0); NEUTROPHILS % MANUAL 81.0 % (45.0-75.0); PLATELET ESTIMATE NORMAL
[2025-07-03] MEDS: QUETIAPINE FUMARATE 25MG TABLET PO SCH (17:52)
[2025-07-04] VITALS: BP 130/62; PULSE 92; RESP 19; TEMP 36.5; O2SAT 98
[2025-07-04 04:00] VITALS: BP 154/76; PULSE 89; RESP 17; TEMP 37.1; O2SAT 97
[2025-07-04 08:00] VITALS: BP 155/67; PULSE 94; RESP 19; TEMP 35.3; O2SAT 99
[2025-07-04 12:00] VITALS: BP 152/72; PULSE 86; RESP 18; TEMP 35.7; O2SAT 96
[2025-07-04 14:36] LABS: HEMATOCRIT. 29.5 % (36.0-48.0); HEMOGLOBIN. 9.4 g/dL (12.0-16.0); MEAN PLATELET VOLUME 7.7 fl (7.4-10.4); PLATELET 363 x1000/uL (130-400); RED BLOOD CELL COUNT 3.42 mill/uL (4.2-5.4); RED CELL DISTRIBUTION WIDTH 22.0 % (11.6-14.6)
[2025-07-04 14:51] LABS: CREATININE 3.8 mg/dL (0.6-1.0)
[2025-07-04 14:52] LABS: UREA NITROGEN BLOOD 26 mg/dL (9-23)
[2025-07-04 14:54] LABS: PHOSPHORUS 3.2 mg/dL (2.5-4.9)
[2025-07-04] MEDS ORDERED: SENNOSIDES/DOCUSATE SOD 8.6/50MG TABLET PO PRN (15:45)
[2025-07-04] MEDS: POLYETHYLENE GLYCOL 3350 (17GM) 1 DOSE PACK PO SCH (15:45)
[2025-07-04] MEDS: PIPERACILLIN/TAZO 3.375G/50ML 50 ML IV SCH (15:56)
[2025-07-04 16:00] VITALS: BP 148/73; PULSE 87; RESP 18; TEMP 35.7; O2SAT 98
[2025-07-04] MEDS: LACTULOSE 20G/30ML UDC PO SCH (18:50)
[2025-07-04] MEDS: VANCOMYCIN 125MG/2.5ML ORAL SYR PO SCH (18:50)
[2025-07-04 20:00] VITALS: BP 154/83; PULSE 76; RESP 18; TEMP 37; O2SAT 100
[2025-07-05] VITALS (15 sets, daily range): BP systolic 97–144; BP diastolic 55–82; PULSE 68–90; RESP 16–18; TEMP 35.8–36.44736; O2SAT 96–100
[2025-07-05 06:35] LABS: BAND% 1.0 % (1.0-6.0); LYMPHOCYTES % MANUAL 4.0 % (20.0-60.0); MONOCYTES % MANUAL 9.0 % (2.0-8.0); NEUTROPHILS % MANUAL 86.0 % (45.0-75.0); PLATELET ESTIMATE NORMAL
[2025-07-05] MEDS: HYDROMORPHONE HCL/PF 1MG/ML INJ IV NR (12:14)
[2025-07-05] MEDS ORDERED: LACTULOSE 20G/30ML UDC PO PRN (14:30)
[2025-07-05] MEDS: HYDRALAZINE HCL 50MG TABLET PO SCH (23:16)
[2025-07-06] VITALS: BP 158/72; PULSE 72; RESP 19; TEMP 36.7; O2SAT 98
[2025-07-06 04:00] VITALS: BP 140/67; PULSE 64; RESP 20; TEMP 36.3; O2SAT 99
[2025-07-06 08:00] VITALS: BP 174/81; PULSE 87; RESP 18; TEMP 36.5; O2SAT 99
[2025-07-06 11:22] LABS: HEMATOCRIT. 30.9 % (36.0-48.0); HEMOGLOBIN. 9.5 g/dL (12.0-16.0); MEAN PLATELET VOLUME 7.3 fl (7.4-10.4); PLATELET 375 x1000/uL (130-400); RED BLOOD CELL COUNT 3.49 mill/uL (4.2-5.4); RED CELL DISTRIBUTION WIDTH 22.9 % (11.6-14.6)
[2025-07-06 11:59] LABS: CREATININE 4.2 mg/dL (0.6-1.0)
[2025-07-06 12:00] VITALS: BP 167/75; PULSE 83; RESP 18; TEMP 36.1; O2SAT 98
[2025-07-06 12:00] LABS: UREA NITROGEN BLOOD 26 mg/dL (9-23)
[2025-07-06 12:02] LABS: PHOSPHORUS 4.2 mg/dL (2.5-4.9)
[2025-07-06] MEDS: OXYCODONE HCL 5MG TABLET PO PRN (15:05)
[2025-07-06 16:00] VITALS: BP 166/73; PULSE 93; RESP 18; TEMP 36; O2SAT 100
[2025-07-06 20:00] VITALS: BP 153/95; PULSE 105; RESP 18; TEMP 36.5; O2SAT 96
[2025-07-06 20:08] LABS: BAND% 7.0 % (1.0-6.0); LYMPHOCYTES % MANUAL 6.0 % (20.0-60.0); MONOCYTES % MANUAL 3.0 % (2.0-8.0); NEUTROPHILS % MANUAL 84.0 % (45.0-75.0); PLATELET ESTIMATE NORMAL
[2025-07-06] MEDS: HYDRALAZINE HCL 100MG TABLET PO SCH (21:23)
[2025-07-07] VITALS (14 sets, daily range): BP systolic 138–196; BP diastolic 70–105; PULSE 84–99; RESP 16–19; TEMP 36.22512–36.9; O2SAT 95–100
[2025-07-07] MEDS: HYDRALAZINE 10 MG in SODIUM CHLORIDE 0.9% 49.5 ML IV PRN (00:14)
[2025-07-07] MEDS: MELATONIN 3MG TABLET PO NR (01:26)
[2025-07-07] MEDS: HYDROMORPHONE HCL/PF 1MG/ML INJ IV NR (10:08)
[2025-07-07 10:30] LABS: HEMATOCRIT. 29.1 % (36.0-48.0); HEMOGLOBIN. 9.1 g/dL (12.0-16.0); MEAN PLATELET VOLUME 7.4 fl (7.4-10.4); PLATELET 354 x1000/uL (130-400); RED BLOOD CELL COUNT 3.43 mill/uL (4.2-5.4); RED CELL DISTRIBUTION WIDTH 22.0 % (11.6-14.6)
[2025-07-07 11:30] LABS: CREATININE 4.1 mg/dL (0.6-1.0)
[2025-07-07 11:31] LABS: UREA NITROGEN BLOOD 30 mg/dL (9-23)
[2025-07-07 11:32] LABS: ASPARTATE AMINOTRANSFERASE 11 IU/L (<34)
[2025-07-07 11:33] LABS: BILIRUBIN DIRECT < 0.1 mg/dL (<=3.0); BILIRUBIN TOTAL < 0.2 mg/dL (0.1-1.0); PHOSPHORUS 3.5 mg/dL (2.5-4.9); PROTEIN TOTAL 6.9 g/dL (6.0-8.3)
[2025-07-07] MEDS: NIFEDIPINE XL 90MG TAB PO SCH (11:52)
[2025-07-07] MEDS ORDERED: POTASSIUM CHLORIDE 20MEQ TABLET SR PO SCH (13:15)
[2025-07-08] VITALS: BP 144/65; PULSE 100; RESP 18; TEMP 37.2; O2SAT 95
[2025-07-08] MEDS: LACTULOSE 20G/30ML UDC PO SCH (00:13)
[2025-07-08 04:00] VITALS: BP 158/65; PULSE 86; RESP 18; TEMP 37.2; O2SAT 96
[2025-07-08 08:00] VITALS: BP 174/68; PULSE 92; RESP 20; TEMP 36.4; O2SAT 96
[2025-07-08 11:08] LABS: BASOPHILS % 0.3 % (0.0-2.0); EOSINOPHILS % 0.4 % (0.0-5.0); HEMATOCRIT. 28.6 % (36.0-48.0); HEMOGLOBIN. 8.9 g/dL (12.0-16.0); LYMPHOCYTES % 8.1 % (20.0-50.0); MEAN PLATELET VOLUME 7.9 fl (7.4-10.4); MONOCYTES % 9.1 % (2.0-8.0); NEUTROPHILS % 82.1 % (40.0-76.0); PLATELET 383 x1000/uL (130-400); RED BLOOD CELL COUNT 3.26 mill/uL (4.2-5.4); RED CELL DISTRIBUTION WIDTH 22.3 % (11.6-14.6)
[2025-07-08 11:28] LABS: CREATININE 4.6 mg/dL (0.6-1.0); UREA NITROGEN BLOOD 30 mg/dL (9-23)
[2025-07-08 11:31] LABS: PHOSPHORUS 4.0 mg/dL (2.5-4.9)
[2025-07-08 12:00] VITALS: BP 188/78; PULSE 93; RESP 20; TEMP 36.2; O2SAT 97
[2025-07-08 16:00] VITALS: BP 168/81; PULSE 88; RESP 18; TEMP 36.6; O2SAT 96
[2025-07-08 16:04] LABS: LYMPHOCYTES % MANUAL 9.0 % (20.0-60.0); MONOCYTES % MANUAL 10.0 % (2.0-8.0); NEUTROPHILS % MANUAL 81.0 % (45.0-75.0); PLATELET ESTIMATE NORMAL
[2025-07-08 20:00] VITALS: BP 154/63; PULSE 86; RESP 17; TEMP 36.7; O2SAT 95
[2025-07-09] VITALS: BP 116/61; PULSE 89; RESP 18; TEMP 36.8; O2SAT 97
[2025-07-09] MEDS: AMOXICILLIN/POTASSIUM CLAVULANATE 500/125MG TAB PO SCH (01:15)
[2025-07-09 04:00] VITALS: BP 135/63; PULSE 19; TEMP 36.7
[2025-07-09 08:00] VITALS: BP 157/56; PULSE 84; RESP 18; TEMP 36.3; O2SAT 98
[2025-07-09 12:00] VITALS: BP 138/57; PULSE 80; RESP 19; TEMP 36.5; O2SAT 97
[2025-07-09 16:00] VITALS: BP 121/88; PULSE 85; RESP 18; TEMP 36.4; O2SAT 97
[2025-07-09 20:00] VITALS: BP 177/68; PULSE 85; RESP 18; TEMP 36.6; O2SAT 95
[2025-07-10] VITALS (13 sets, daily range): BP systolic 110–193; BP diastolic 66–85; PULSE 75–96; RESP 16–20; TEMP 36.1–36.9; O2SAT 96–99
[2025-07-10] MEDS ORDERED: NALOXONE HCL 0.4MG/ML VIAL IV PRN (14:15)
[2025-07-10] MEDS ORDERED: NIFEDIPINE XL 60MG TAB PO SCH (21:00)
[2025-07-10] MEDS: HYDROCODONE/ACETAMINOPHEN 5/325MG TABLET PO PRN (23:52)
[2025-07-11] VITALS: BP 142/61; PULSE 90; RESP 19; TEMP 37.1; O2SAT 97
[2025-07-11 04:00] VITALS: BP 125/66; PULSE 91; RESP 18; TEMP 36.5; O2SAT 98
[2025-07-11 08:00] VITALS: BP 153/74; PULSE 91; RESP 18; TEMP 36.9; O2SAT 97
[2025-07-11 08:14] LABS: BASOPHILS % 0.6 % (0.0-2.0); CREATININE 4.9 mg/dL (0.6-1.0); EOSINOPHILS % 0.2 % (0.0-5.0); HEMATOCRIT. 33.7 % (36.0-48.0); HEMOGLOBIN. 10.7 g/dL (12.0-16.0); LYMPHOCYTES % 7.4 % (20.0-50.0); MONOCYTES % 7.5 % (2.0-8.0); NEUTROPHILS % 84.3 % (40.0-76.0); RED BLOOD CELL COUNT 3.86 mill/uL (4.2-5.4); RED CELL DISTRIBUTION WIDTH 22.4 % (11.6-14.6)
[2025-07-11 08:15] LABS: UREA NITROGEN BLOOD 38 mg/dL (9-23)
[2025-07-11 08:17] LABS: PHOSPHORUS 4.0 mg/dL (2.5-4.9)
[2025-07-11] MEDS: NIFEDIPINE XL 60MG TAB PO SCH (08:51)
[2025-07-11 12:00] VITALS: BP 160/61; PULSE 93; RESP 18; TEMP 36.7; O2SAT 96
[2025-07-11 16:00] VITALS: BP 174/64; PULSE 89; RESP 18; TEMP 36.7; O2SAT 97
[2025-07-11] MEDS: CLONIDINE 0.1MG TABLET PO PRN (18:23)
[2025-07-11 20:00] VITALS: BP 138/62; PULSE 81; RESP 18; TEMP 36.5; O2SAT 94
[2025-07-11 21:10] LABS: PLATELET 392 x1000/uL (130-400)
[2025-07-11] MEDS: MELATONIN 3MG TABLET PO SCH (21:38)
[2025-07-12] VITALS (14 sets, daily range): BP systolic 117–165; BP diastolic 50–79; PULSE 71–96; RESP 17–20; TEMP 36.114–36.8; O2SAT 96–98
[2025-07-12] MEDS: HEPARIN SODIUM 1,000 UNIT/1ML VIAL IV ONE (11:00)
[2025-07-12 11:16] LABS: HEMATOCRIT. 28.8 % (36.0-48.0); HEMOGLOBIN. 9.2 g/dL (12.0-16.0); MEAN PLATELET VOLUME 8.1 fl (7.4-10.4); PLATELET 293 x1000/uL (130-400); RED BLOOD CELL COUNT 3.33 mill/uL (4.2-5.4); RED CELL DISTRIBUTION WIDTH 22.4 % (11.6-14.6)
[2025-07-12 11:30] LABS: CREATININE 4.6 mg/dL (0.6-1.0); UREA NITROGEN BLOOD 38 mg/dL (9-23)
[2025-07-12 11:32] LABS: PHOSPHORUS 3.6 mg/dL (2.5-4.9)
[2025-07-12] MEDS: BLOOD SUGAR DIAGNOSTIC STRIP TEST SCH (12:00)
[2025-07-12] MEDS: HEPARIN SODIUM 1,000 UNIT/1ML VIAL IV SCH (12:00)
[2025-07-12] MEDS: POTASSIUM CHLORIDE 20MEQ/PACKET PO SCH (13:05)
[2025-07-12 17:11] LABS: LYMPHOCYTES % MANUAL 8.0 % (20.0-60.0); MONOCYTES % MANUAL 7.0 % (2.0-8.0); NEUTROPHILS % MANUAL 85.0 % (45.0-75.0); PLATELET ESTIMATE NORMAL
[2025-07-13] VITALS: BP 132/67; PULSE 89; RESP 20; TEMP 36.3; O2SAT 99
[2025-07-13 04:00] VITALS: BP 137/56; PULSE 93; RESP 20; TEMP 36.4; O2SAT 97
[2025-07-13 07:42] LABS: CREATININE 4.6 mg/dL (0.6-1.0); UREA NITROGEN BLOOD 33 mg/dL (9-23)
[2025-07-13 07:44] LABS: PHOSPHORUS 3.1 mg/dL (2.5-4.9)
[2025-07-13 08:00] VITALS: BP 142/58; PULSE 88; RESP 18; TEMP 36.4; O2SAT 96
[2025-07-13 12:00] VITALS: BP 118/60; PULSE 79; RESP 18; TEMP 36.1; O2SAT 97
[2025-07-13 12:01] LABS: HEMATOCRIT. 26.7 % (36.0-48.0); HEMOGLOBIN. 8.4 g/dL (12.0-16.0); MEAN PLATELET VOLUME 8.2 fl (7.4-10.4); PLATELET 292 x1000/uL (130-400); RED BLOOD CELL COUNT 3.11 mill/uL (4.2-5.4); RED CELL DISTRIBUTION WIDTH 21.7 % (11.6-14.6)
[2025-07-13 13:23] LABS: BAND% 12.0 % (1.0-6.0); LYMPHOCYTES % MANUAL 9.0 % (20.0-60.0); MONOCYTES % MANUAL 9.0 % (2.0-8.0); NEUTROPHILS % MANUAL 70.0 % (45.0-75.0); PLATELET ESTIMATE NORMAL
[2025-07-13] MEDS: SODIUM HYPOCHLORITE 0.125% 473ML SOLUTION TOP SCH (14:30)
[2025-07-13 16:00] VITALS: BP 152/52; PULSE 70; RESP 16; TEMP 36.2; O2SAT 97
[2025-07-13 20:00] VITALS: BP 117/50; PULSE 87; RESP 19; TEMP 36.4; O2SAT 98
[2025-07-13] MEDS: SENNOSIDES/DOCUSATE SOD 8.6/50MG TABLET PO SCH (21:53)
[2025-07-14] VITALS (15 sets, daily range): BP systolic 110–147; BP diastolic 50–73; PULSE 51–101; RESP 16–19; TEMP 36.3–37.3; O2SAT 95–100
[2025-07-14] MEDS: LOSARTAN 50 MG TABLET PO SCH (08:54)
[2025-07-14 12:21] LABS: CREATININE 3.7 mg/dL (0.6-1.0)
[2025-07-14 12:22] LABS: UREA NITROGEN BLOOD 24 mg/dL (9-23)
[2025-07-14 12:24] LABS: PHOSPHORUS 2.7 mg/dL (2.5-4.9)
[2025-07-14 13:22] LABS: HEMATOCRIT. 28.0 % (36.0-48.0); HEMOGLOBIN. 8.5 g/dL (12.0-16.0); MEAN PLATELET VOLUME 8.8 fl (7.4-10.4); PLATELET 277 x1000/uL (130-400); RED BLOOD CELL COUNT 3.19 mill/uL (4.2-5.4); RED CELL DISTRIBUTION WIDTH 22.1 % (11.6-14.6)
[2025-07-14] MEDS: MEROPENEM 500MG/50ML 50 ML IV SCH (16:00)
[2025-07-14] MEDS ORDERED: PIPERACILLIN/TAZO 3.375G/50ML 50 ML IV SCH (21:00)
[2025-07-14] MEDS: EPOETIN ALFA-EPBX 4,000 UNITS/ML VIAL SUBCUT SCH (21:10)
[2025-07-14 22:28] LABS: LYMPHOCYTES % MANUAL 5.0 % (20.0-60.0); MONOCYTES % MANUAL 7.0 % (2.0-8.0); NEUTROPHILS % MANUAL 88.0 % (45.0-75.0); PLATELET ESTIMATE NORMAL
[2025-07-15] VITALS: BP 150/63; PULSE 96; RESP 18; TEMP 37.7; O2SAT 97
[2025-07-15 04:00] VITALS: BP 165/71; PULSE 94; RESP 18; TEMP 36.7; O2SAT 95
[2025-07-15 08:00] VITALS: BP 149/71; PULSE 94; RESP 18; TEMP 36.5; O2SAT 95
[2025-07-15 08:48] LABS: HEMATOCRIT. 28.0 % (36.0-48.0); HEMOGLOBIN. 9.0 g/dL (12.0-16.0); MEAN PLATELET VOLUME 8.9 fl (7.4-10.4); PLATELET 299 x1000/uL (130-400); RED BLOOD CELL COUNT 3.27 mill/uL (4.2-5.4); RED CELL DISTRIBUTION WIDTH 21.9 % (11.6-14.6)
[2025-07-15 08:58] LABS: CREATININE 4.6 mg/dL (0.6-1.0)
[2025-07-15 08:59] LABS: UREA NITROGEN BLOOD 38 mg/dL (9-23)
[2025-07-15 09:01] LABS: PHOSPHORUS 2.4 mg/dL (2.5-4.9)
[2025-07-15 12:00] VITALS: BP 139/55; PULSE 89; RESP 17; TEMP 36.7; O2SAT 95
[2025-07-15 14:49] LABS: LYMPHOCYTES % MANUAL 7.0 % (20.0-60.0); MONOCYTES % MANUAL 8.0 % (2.0-8.0); NEUTROPHILS % MANUAL 85.0 % (45.0-75.0); PLATELET ESTIMATE NORMAL
[2025-07-15 16:00] VITALS: BP 98/68; PULSE 90; RESP 18; TEMP 36.9; O2SAT 95
[2025-07-15] MEDS: TRAMADOL HCL/ACETAMINOPHEN 37.5/325MG TABLET PO PRN (16:35)
[2025-07-15 20:00] VITALS: BP 118/70; PULSE 88; RESP 17; TEMP 36.9; O2SAT 97
[2025-07-16] VITALS: BP 129/67; PULSE 87; RESP 21; TEMP 37.6; O2SAT 96
[2025-07-16 04:00] VITALS: BP 158/52; PULSE 98; RESP 20; TEMP 37.6; O2SAT 99
[2025-07-16 08:00] VITALS: BP 147/68; PULSE 99; RESP 17; TEMP 36.6; O2SAT 95
[2025-07-16 08:03] LABS: HEMATOCRIT. 27.6 % (36.0-48.0); HEMOGLOBIN. 8.9 g/dL (12.0-16.0); MEAN PLATELET VOLUME 9.1 fl (7.4-10.4); PLATELET 288 x1000/uL (130-400); RED BLOOD CELL COUNT 3.24 mill/uL (4.2-5.4); RED CELL DISTRIBUTION WIDTH 21.5 % (11.6-14.6); UREA NITROGEN BLOOD 50 mg/dL (9-23)
[2025-07-16 08:05] LABS: PHOSPHORUS 2.2 mg/dL (2.5-4.9)
[2025-07-16 08:55] LABS: CREATININE 5.3 mg/dL (0.6-1.0)
[2025-07-16] MEDS ORDERED: NALOXONE HCL 0.4MG/ML VIAL IV PRN (11:30)
[2025-07-16 12:00] VITALS: BP 139/55; PULSE 94; RESP 18; TEMP 36.1; O2SAT 94
[2025-07-16] MEDS: SODIUM PHOSPHATE 15 MMOL in DEXT 5% WATER 245 ML IV NR (13:00)
[2025-07-16 14:59] LABS: LYMPHOCYTES % MANUAL 3.0 % (20.0-60.0); MONOCYTES % MANUAL 10.0 % (2.0-8.0); NEUTROPHILS % MANUAL 87.0 % (45.0-75.0); PLATELET ESTIMATE NORMAL
[2025-07-16 16:00] VITALS: BP 141/69; PULSE 97; RESP 18; TEMP 36.2; O2SAT 92
[2025-07-16 20:00] VITALS: BP 121/65; PULSE 91; RESP 18; TEMP 36.7; O2SAT 100
[2025-07-17] VITALS (13 sets, daily range): BP systolic 101–160; BP diastolic 54–85; PULSE 70–94; RESP 17–20; TEMP 36.1–36.6; O2SAT 96–99
[2025-07-17 15:58] LABS: HEMATOCRIT. 25.8 % (36.0-48.0); HEMOGLOBIN. 8.0 g/dL (12.0-16.0); MEAN PLATELET VOLUME 9.0 fl (7.4-10.4); PLATELET 337 x1000/uL (130-400); RED BLOOD CELL COUNT 2.99 mill/uL (4.2-5.4); RED CELL DISTRIBUTION WIDTH 22.0 % (11.6-14.6)
[2025-07-17 16:07] LABS: UREA NITROGEN BLOOD 65 mg/dL (9-23)
[2025-07-17 16:09] LABS: PHOSPHORUS 3.5 mg/dL (2.5-4.9)
[2025-07-17 16:11] LABS: CREATININE 6.2 mg/dL (0.6-1.0)
[2025-07-17 16:16] LABS: LYMPHOCYTES % MANUAL 12.0 % (20.0-60.0); MONOCYTES % MANUAL 8.0 % (2.0-8.0); NEUTROPHILS % MANUAL 80.0 % (45.0-75.0); PLATELET ESTIMATE NORMAL
[2025-07-18] VITALS: BP 150/54; PULSE 92; RESP 16; TEMP 36.7; O2SAT 100
[2025-07-18 04:00] VITALS: BP 155/53; PULSE 84; RESP 17; TEMP 36.6; O2SAT 100
[2025-07-18 08:00] VITALS: BP 156/55; PULSE 88; RESP 16; TEMP 36.5; O2SAT 99
[2025-07-18 12:00] VITALS: BP 159/65; PULSE 93; RESP 17; TEMP 36.4; O2SAT 96
[2025-07-18] MEDS: POLYETHYLENE GLYCOL 3350 (17GM) 1 DOSE PACK PO SCH (14:30)
[2025-07-18 16:00] VITALS: BP 152/68; PULSE 94; RESP 17; TEMP 36.6; O2SAT 97
[2025-07-18 18:28] LABS: BASOPHILS % 0.1 % (0.0-2.0); EOSINOPHILS % 0.2 % (0.0-5.0); HEMATOCRIT. 26.5 % (36.0-48.0); HEMOGLOBIN. 8.3 g/dL (12.0-16.0); LYMPHOCYTES % 7.2 % (20.0-50.0); MEAN PLATELET VOLUME 9.1 fl (7.4-10.4); MONOCYTES % 6.2 % (2.0-8.0); NEUTROPHILS % 86.3 % (40.0-76.0); PLATELET 356 x1000/uL (130-400); RED BLOOD CELL COUNT 2.99 mill/uL (4.2-5.4); RED CELL DISTRIBUTION WIDTH 21.9 % (11.6-14.6)
[2025-07-18 18:40] LABS: CREATININE 4.6 mg/dL (0.6-1.0); UREA NITROGEN BLOOD 42 mg/dL (9-23)
[2025-07-18 18:43] LABS: PHOSPHORUS 2.9 mg/dL (2.5-4.9)
[2025-07-18 20:00] VITALS: BP 123/64; PULSE 100; RESP 20; TEMP 36.3; O2SAT 96
[2025-07-19] VITALS (14 sets, daily range): BP systolic 103–156; BP diastolic 50–98; PULSE 82–100; RESP 18–20; TEMP 36.2–37.4; O2SAT 98–100
[2025-07-19] MEDS: SIMETHICONE 80MG TABLET CHEW PO PRN (05:54)
[2025-07-19] MEDS: BISACODYL 10MG SUPP PR NR (14:42)
[2025-07-20] VITALS: BP 121/54; PULSE 93; RESP 18; TEMP 37.1; O2SAT 97
[2025-07-20] MEDS: BISACODYL 10MG SUPP PR NR (01:06)
[2025-07-20 04:00] VITALS: BP 123/60; PULSE 84; RESP 18; TEMP 36.6; O2SAT 98
[2025-07-20 08:00] VITALS: BP 135/73; PULSE 92; RESP 18; TEMP 36.1; O2SAT 97
[2025-07-20 12:00] VITALS: BP 142/69; PULSE 92; RESP 17; TEMP 36.4; O2SAT 98
[2025-07-20 14:02] LABS: CREATININE 4.8 mg/dL (0.6-1.0); UREA NITROGEN BLOOD 48 mg/dL (9-23)
[2025-07-20 14:04] LABS: ASPARTATE AMINOTRANSFERASE 71 IU/L (<34); BILIRUBIN DIRECT < 0.1 mg/dL (<=3.0); BILIRUBIN TOTAL < 0.2 mg/dL (0.1-1.0); PHOSPHORUS 3.1 mg/dL (2.5-4.9); PROTEIN TOTAL 6.6 g/dL (6.0-8.3)
[2025-07-20 16:00] VITALS: BP 154/69; PULSE 94; RESP 18; TEMP 36.5; O2SAT 96
[2025-07-20 20:00] VITALS: BP 153/62; PULSE 96; RESP 18; TEMP 36.9; O2SAT 95
[2025-07-21] VITALS (12 sets, daily range): BP systolic 122–161; BP diastolic 44–89; PULSE 85–100; RESP 16–19; TEMP 35.89176–36.7; O2SAT 96–99
[2025-07-21 15:27] LABS: HEMATOCRIT. 24.6 % (36.0-48.0); HEMOGLOBIN. 8.0 g/dL (12.0-16.0); MEAN PLATELET VOLUME 8.4 fl (7.4-10.4); PLATELET 417 x1000/uL (130-400); RED BLOOD CELL COUNT 2.88 mill/uL (4.2-5.4); RED CELL DISTRIBUTION WIDTH 21.7 % (11.6-14.6)
[2025-07-21 15:43] LABS: TROPONIN I HIGH SENSITIVITY 11 ng/L (3.0-34)
[2025-07-21 17:13] LABS: CREATININE 4.0 mg/dL (0.6-1.0); UREA NITROGEN BLOOD 40 mg/dL (9-23)
[2025-07-21 17:15] LABS: PHOSPHORUS 3.2 mg/dL (2.5-4.9)
[2025-07-21 17:32] LABS: BAND% 2.0 % (1.0-6.0); LYMPHOCYTES % MANUAL 4.0 % (20.0-60.0); MONOCYTES % MANUAL 6.0 % (2.0-8.0); NEUTROPHILS % MANUAL 88.0 % (45.0-75.0); PLATELET ESTIMATE SLIGHTLY INCREASED
[2025-07-21 20:25] LABS: HEPATITIS A AB IGM NEGATIVE (Negative)
[2025-07-21 20:26] LABS: HEPATITIS B CORE AB IGM NEGATIVE (Negative); HEPATITIS C AB NON REACTIVE (Neg) (Negative)
[2025-07-22] MEDS: HYDROCODONE/ACETAMINOPHEN 5/325MG TABLET PO NR (05:40)
[2025-07-22] MEDS: SODIUM CHLORIDE 0.9% 500 ML IV ONE (05:42)
[2025-07-22 08:00] VITALS: BP 116/45; PULSE 84; RESP 18; TEMP 36.6; O2SAT 97
[2025-07-22 10:17] LABS: HEMATOCRIT. 26.1 % (36.0-48.0); HEMOGLOBIN. 7.9 g/dL (12.0-16.0); MEAN PLATELET VOLUME 8.2 fl (7.4-10.4); PLATELET 393 x1000/uL (130-400); RED BLOOD CELL COUNT 2.84 mill/uL (4.2-5.4); RED CELL DISTRIBUTION WIDTH 22.3 % (11.6-14.6)
[2025-07-22 10:28] LABS: CREATININE 4.6 mg/dL (0.6-1.0); UREA NITROGEN BLOOD 46 mg/dL (9-23)
[2025-07-22 10:30] LABS: PHOSPHORUS 3.7 mg/dL (2.5-4.9)
[2025-07-22 11:33] LABS: BAND% 6.0 % (1.0-6.0); LYMPHOCYTES % MANUAL 6.0 % (20.0-60.0); MONOCYTES % MANUAL 3.0 % (2.0-8.0); NEUTROPHILS % MANUAL 85.0 % (45.0-75.0); PLATELET ESTIMATE NORMAL
[2025-07-22 12:00] VITALS: BP 120/54; PULSE 84; RESP 18; TEMP 36.3; O2SAT 97
[2025-07-22 16:00] VITALS: BP 142/49; PULSE 88; RESP 18; TEMP 36.7; O2SAT 97
[2025-07-22] MEDS: MEROPENEM 500MG/50ML 50 ML IV SCH (18:05)
[2025-07-22 20:00] VITALS: BP 136/55; PULSE 86; RESP 19; TEMP 36.2; O2SAT 98
[2025-07-23] VITALS: BP 150/55; PULSE 80; RESP 20; TEMP 36.2; O2SAT 96
[2025-07-23 04:00] VITALS: BP 153/47; PULSE 86; RESP 20; TEMP 36.3; O2SAT 97
[2025-07-23 08:00] VITALS: BP 140/40; PULSE 86; RESP 18; TEMP 36.8; O2SAT 96
[2025-07-23 12:00] VITALS: BP 156/46; PULSE 93; RESP 18; TEMP 37; O2SAT 97
[2025-07-23 16:00] VITALS: BP 151/44; PULSE 91; RESP 18; TEMP 36.6; O2SAT 97
[2025-07-23 20:00] VITALS: BP 140/62; PULSE 102; RESP 18; TEMP 35.9; O2SAT 98
[2025-07-24] VITALS (14 sets, daily range): BP systolic 108–149; BP diastolic 41–78; PULSE 87–105; RESP 18–19; TEMP 35.7–36.6; O2SAT 96–100
[2025-07-24] MEDS: INSULIN LISPRO 100 UNITS/ML SUBCUT SCH (06:39)
[2025-07-24] MEDS: BLOOD SUGAR DIAGNOSTIC STRIP TEST SCH (06:39)
[2025-07-24 06:57] LABS: UREA NITROGEN BLOOD 43 mg/dL (9-23)
[2025-07-24 06:59] LABS: PHOSPHORUS 3.7 mg/dL (2.5-4.9)
[2025-07-24 07:41] LABS: CREATININE 5.5 mg/dL (0.6-1.0)
[2025-07-24] MEDS ORDERED: NALOXONE HCL 0.4MG/ML VIAL IV PRN (10:30)
[2025-07-24] MEDS: TRAMADOL HCL/ACETAMINOPHEN 37.5/325MG TABLET PO PRN (12:14)
[2025-07-24] MEDS: EPOETIN ALFA-EPBX 4,000 UNITS/ML VIAL SUBCUT SCH (21:25)
[2025-07-25] VITALS: BP 116/83; PULSE 102; RESP 18; TEMP 36.3; O2SAT 96
[2025-07-25 04:00] VITALS: BP 128/74; PULSE 101; RESP 18; TEMP 36.7; O2SAT 94
[2025-07-25 08:00] VITALS: BP 149/64; PULSE 98; RESP 17; TEMP 36.4; O2SAT 96
[2025-07-25 12:00] VITALS: BP 114/46; PULSE 98; RESP 16; TEMP 36.4; O2SAT 96
[2025-07-25 16:00] VITALS: BP 150/65; PULSE 104; RESP 16; TEMP 36.7; O2SAT 97
[2025-07-25 20:00] VITALS: BP 146/60; PULSE 103; RESP 18; TEMP 36.9; O2SAT 96
[2025-07-26] VITALS (14 sets, daily range): BP systolic 116–170; BP diastolic 46–82; PULSE 73–113; RESP 16–20; TEMP 36.2–36.9; O2SAT 96–100
[2025-07-26 06:48] LABS: CREATININE 4.8 mg/dL (0.6-1.0)
[2025-07-26 06:49] LABS: UREA NITROGEN BLOOD 44 mg/dL (9-23)
[2025-07-26 06:50] LABS: ASPARTATE AMINOTRANSFERASE 23 IU/L (<34)
[2025-07-26 06:51] LABS: BILIRUBIN DIRECT < 0.1 mg/dL (<=3.0); BILIRUBIN TOTAL < 0.2 mg/dL (0.1-1.0); PHOSPHORUS 3.1 mg/dL (2.5-4.9); PROTEIN TOTAL 6.6 g/dL (6.0-8.3)
[2025-07-26 07:46] LABS: HEMATOCRIT. 22.0 % (36.0-48.0); MEAN PLATELET VOLUME 8.0 fl (7.4-10.4); PLATELET 481 x1000/uL (130-400); RED BLOOD CELL COUNT 2.52 mill/uL (4.2-5.4); RED CELL DISTRIBUTION WIDTH 21.7 % (11.6-14.6)
[2025-07-26 08:03] LABS: HEMOGLOBIN. 6.8 g/dL (12.0-16.0)
[2025-07-26] MEDS: DIPHENHYDRAMINE 25MG CAPSULE PO NR (11:57)
[2025-07-26 16:47] LABS: EOSINOPHILS % MANUAL 3.0 % (0.0-5.0); LYMPHOCYTES % MANUAL 9.0 % (20.0-60.0); MONOCYTES % MANUAL 3.0 % (2.0-8.0); NEUTROPHILS % MANUAL 85.0 % (45.0-75.0); PLATELET ESTIMATE NORMAL
[2025-07-26] MEDS ORDERED: VANCOMYCIN 125MG/2.5ML ORAL SYR PO SCH (22:00)
[2025-07-27] VITALS: BP 128/64; PULSE 106; RESP 19; TEMP 36.4; O2SAT 97
[2025-07-27] MEDS: HYDROCODONE/ACETAMINOPHEN 5/325MG TABLET PO NR (03:44)
[2025-07-27 04:00] VITALS: BP 153/66; PULSE 100; RESP 20; TEMP 36.3; O2SAT 100
[2025-07-27 08:00] VITALS: BP 131/63; PULSE 98; RESP 15; TEMP 36.4; O2SAT 96
[2025-07-27] MEDS: TRAMADOL HCL/ACETAMINOPHEN 37.5/325MG TABLET PO PRN (09:44)
[2025-07-27] MEDS: VANCOMYCIN 125MG/2.5ML ORAL SYR PO SCH (09:44)
[2025-07-27] MEDS ORDERED: NALOXONE HCL 0.4MG/ML VIAL IV PRN (09:45)
[2025-07-27 12:00] VITALS: BP 146/74; PULSE 100; RESP 20; TEMP 36.8; O2SAT 100
[2025-07-27 16:00] VITALS: BP 146/72; PULSE 107; RESP 20; TEMP 36.5; O2SAT 95
[2025-07-27 20:00] VITALS: BP 138/70; PULSE 105; RESP 18; TEMP 37.2; O2SAT 97
[2025-07-27] MEDS: ACETAMINOPHEN 325MG TABLET PO PRN (21:00)
[2025-07-27 22:28] LABS: HEMATOCRIT. 21.2 % (36.0-48.0); MEAN PLATELET VOLUME 7.5 fl (7.4-10.4); PLATELET 481 x1000/uL (130-400); RED BLOOD CELL COUNT 2.42 mill/uL (4.2-5.4); RED CELL DISTRIBUTION WIDTH 22.1 % (11.6-14.6)
[2025-07-27 22:30] LABS: HEMOGLOBIN. 6.5 g/dL (12.0-16.0)
[2025-07-27 22:41] LABS: CREATININE 4.6 mg/dL (0.6-1.0)
[2025-07-27 22:42] LABS: EOSINOPHILS % MANUAL 1.0 % (0.0-5.0); LYMPHOCYTES % MANUAL 6.0 % (20.0-60.0); MONOCYTES % MANUAL 7.0 % (2.0-8.0); NEUTROPHILS % MANUAL 86.0 % (45.0-75.0); PLATELET ESTIMATE INCREASED; UREA NITROGEN BLOOD 37 mg/dL (9-23)
[2025-07-27 22:43] LABS: ASPARTATE AMINOTRANSFERASE 28 IU/L (<34)
[2025-07-27 22:44] LABS: BILIRUBIN DIRECT < 0.1 mg/dL (<=3.0); BILIRUBIN TOTAL < 0.2 mg/dL (0.1-1.0); PHOSPHORUS 3.4 mg/dL (2.5-4.9); PROTEIN TOTAL 6.6 g/dL (6.0-8.3)
[2025-07-28] VITALS (11 sets, daily range): BP systolic 117–150; BP diastolic 55–91; PULSE 84–110; RESP 16–20; TEMP 36.4–36.89184; O2SAT 95–99
[2025-07-28 11:58] LABS: HEMATOCRIT. 27.5 % (36.0-48.0); HEMOGLOBIN. 8.8 g/dL (12.0-16.0); MEAN PLATELET VOLUME 7.6 fl (7.4-10.4); PLATELET 500 x1000/uL (130-400); RED BLOOD CELL COUNT 3.13 mill/uL (4.2-5.4); RED CELL DISTRIBUTION WIDTH 20.8 % (11.6-14.6)
[2025-07-28 12:11] LABS: CREATININE 4.7 mg/dL (0.6-1.0)
[2025-07-28 12:12] LABS: UREA NITROGEN BLOOD 43 mg/dL (9-23)
[2025-07-28] MEDS: DIPHENHYDRAMINE 50MG/ML VIAL IV NR (12:13)
[2025-07-28 12:14] LABS: PHOSPHORUS 3.9 mg/dL (2.5-4.9)
[2025-07-28 14:09] LABS: BAND% 4.0 % (1.0-6.0); LYMPHOCYTES % MANUAL 6.0 % (20.0-60.0); MONOCYTES % MANUAL 4.0 % (2.0-8.0); NEUTROPHILS % MANUAL 86.0 % (45.0-75.0)
[2025-07-28 14:11] LABS: PLATELET ESTIMATE INCREAS
[2025-07-29] VITALS (15 sets, daily range): BP systolic 94–145; BP diastolic 60–82; PULSE 80–112; RESP 16–20; TEMP 36–36.8; O2SAT 86–100
[2025-07-29 07:21] LABS: HEMATOCRIT. 24.4 % (36.0-48.0); HEMOGLOBIN. 8.0 g/dL (12.0-16.0); MEAN PLATELET VOLUME 7.8 fl (7.4-10.4); PLATELET 476 x1000/uL (130-400); RED BLOOD CELL COUNT 2.76 mill/uL (4.2-5.4); RED CELL DISTRIBUTION WIDTH 20.8 % (11.6-14.6)
[2025-07-29] MEDS: HYDROXYZINE 25MG TABLET PO PRN (07:32)
[2025-07-29] MEDS: DIPHENHYDRAMINE 50MG/ML VIAL IV SCH (10:14)
[2025-07-29 14:28] LABS: BAND% 5.0 % (1.0-6.0); LYMPHOCYTES % MANUAL 6.0 % (20.0-60.0); MONOCYTES % MANUAL 10.0 % (2.0-8.0); NEUTROPHILS % MANUAL 79.0 % (45.0-75.0); PLATELET ESTIMATE INCREASED
[2025-07-30] VITALS: BP 131/74; PULSE 60; RESP 18; TEMP 36.5; O2SAT 98
[2025-07-30 05:02] VITALS: BP 141/74; PULSE 115; RESP 18; TEMP 36.6; O2SAT 94
[2025-07-30 08:00] VITALS: BP 143/64; PULSE 116; RESP 18; TEMP 36.4; O2SAT 99
[2025-07-30 12:00] VITALS: BP 137/81; PULSE 115; RESP 19; TEMP 36.7; O2SAT 100
[2025-07-30 12:07] LABS: HEMATOCRIT. 26.8 % (36.0-48.0); HEMOGLOBIN. 8.5 g/dL (12.0-16.0); MEAN PLATELET VOLUME 7.6 fl (7.4-10.4); PLATELET 540 x1000/uL (130-400); RED BLOOD CELL COUNT 3.02 mill/uL (4.2-5.4); RED CELL DISTRIBUTION WIDTH 21.4 % (11.6-14.6)
[2025-07-30 12:16] LABS: CREATININE 4.9 mg/dL (0.6-1.0)
[2025-07-30 12:17] LABS: UREA NITROGEN BLOOD 42 mg/dL (9-23)
[2025-07-30 12:19] LABS: PHOSPHORUS 3.8 mg/dL (2.5-4.9)
[2025-07-30 16:00] VITALS: BP 143/60; PULSE 103; RESP 20; TEMP 36.2; O2SAT 96
[2025-07-30 17:13] LABS: LYMPHOCYTES % MANUAL 7.0 % (20.0-60.0); MONOCYTES % MANUAL 6.0 % (2.0-8.0); NEUTROPHILS % MANUAL 87.0 % (45.0-75.0); PLATELET ESTIMATE INCREASED
[2025-07-30 20:00] VITALS: BP 141/61; PULSE 110; RESP 19; TEMP 36.6; O2SAT 96
[2025-07-31] VITALS (14 sets, daily range): BP systolic 94–137; BP diastolic 56–93; PULSE 65–117; RESP 15–22; TEMP 36.3–36.78072; O2SAT 97–100
[2025-07-31 06:47] LABS: HEMATOCRIT. 26.5 % (36.0-48.0); HEMOGLOBIN. 8.4 g/dL (12.0-16.0); MEAN PLATELET VOLUME 8.0 fl (7.4-10.4); PLATELET 494 x1000/uL (130-400); RED BLOOD CELL COUNT 2.96 mill/uL (4.2-5.4); RED CELL DISTRIBUTION WIDTH 21.0 % (11.6-14.6)
[2025-07-31 07:03] LABS: UREA NITROGEN BLOOD 47 mg/dL (9-23)
[2025-07-31 07:05] LABS: PHOSPHORUS 4.5 mg/dL (2.5-4.9)
[2025-07-31 08:11] LABS: CREATININE 5.2 mg/dL (0.6-1.0)
[2025-07-31] MEDS ORDERED: ONDANSETRON HCL 4MG/2ML INJ IV PRN (09:15)
[2025-07-31] MEDS ORDERED: HYDROMORPHONE HCL/PF 1MG/ML INJ IV PRN (09:15)
[2025-07-31] MEDS ORDERED: FENTANYL CITRATE/PF 50MCG/ML 2ML VIAL ONE (09:17)
[2025-07-31 10:44] LABS: BAND% 5.0 % (1.0-6.0); EOSINOPHILS % MANUAL 1.0 % (0.0-5.0); LYMPHOCYTES % MANUAL 3.0 % (20.0-60.0); MONOCYTES % MANUAL 8.0 % (2.0-8.0); NEUTROPHILS % MANUAL 83.0 % (45.0-75.0); PLATELET ESTIMATE INCREASED
[2025-07-31] MEDS ORDERED: LIDOCAINE HCL 1% 10 MG/ML 10ML VIAL ONE (11:49)
[2025-08-01] VITALS: BP 119/69; PULSE 114; RESP 17; TEMP 36.5; O2SAT 98
[2025-08-01 04:00] VITALS: BP 131/73; PULSE 99; RESP 17; TEMP 36.5; O2SAT 99
[2025-08-01 08:00] VITALS: BP 150/75; PULSE 98; RESP 16; TEMP 36.3; O2SAT 100
[2025-08-01 11:12] LABS: HEMATOCRIT. 31.8 % (36.0-48.0); HEMOGLOBIN. 10.5 g/dL (12.0-16.0); MEAN PLATELET VOLUME 8.0 fl (7.4-10.4); PLATELET 441 x1000/uL (130-400); RED BLOOD CELL COUNT 3.53 mill/uL (4.2-5.4); RED CELL DISTRIBUTION WIDTH 18.7 % (11.6-14.6)
[2025-08-01 11:21] LABS: CREATININE 3.7 mg/dL (0.6-1.0); UREA NITROGEN BLOOD 33 mg/dL (9-23)
[2025-08-01 11:23] LABS: PHOSPHORUS 3.0 mg/dL (2.5-4.9)
[2025-08-01 12:00] VITALS: BP 155/80; PULSE 104; RESP 20; TEMP 36.2; O2SAT 100
[2025-08-01] MEDS: TRAMADOL HCL/ACETAMINOPHEN 37.5/325MG TABLET PO PRN (13:51)
[2025-08-01] MEDS ORDERED: NALOXONE HCL 0.4MG/ML VIAL IV PRN (14:00)
[2025-08-01 16:00] VITALS: BP 135/70; PULSE 101; RESP 20; TEMP 36.2; O2SAT 100
[2025-08-01 19:25] LABS: LYMPHOCYTES % MANUAL 2.0 % (20.0-60.0); MONOCYTES % MANUAL 8.0 % (2.0-8.0); NEUTROPHILS % MANUAL 90.0 % (45.0-75.0); PLATELET ESTIMATE INCREASED
[2025-08-01 20:00] VITALS: BP 147/73; PULSE 100; RESP 18; TEMP 36.8; O2SAT 99
[2025-08-02] VITALS (11 sets, daily range): BP systolic 99–142; BP diastolic 45–81; PULSE 97–104; RESP 18–62; TEMP 36.1–36.7; O2SAT 97–99
[2025-08-02 06:11] LABS: HEMATOCRIT. 32.2 % (36.0-48.0); HEMOGLOBIN. 10.4 g/dL (12.0-16.0); MEAN PLATELET VOLUME 7.5 fl (7.4-10.4); PLATELET 482 x1000/uL (130-400); RED BLOOD CELL COUNT 3.53 mill/uL (4.2-5.4); RED CELL DISTRIBUTION WIDTH 18.8 % (11.6-14.6)
[2025-08-02 06:15] LABS: INR 1.1
[2025-08-02 06:26] LABS: CREATININE 4.2 mg/dL (0.6-1.0)
[2025-08-02 06:27] LABS: UREA NITROGEN BLOOD 40 mg/dL (9-23)
[2025-08-02 06:29] LABS: PHOSPHORUS 3.6 mg/dL (2.5-4.9)
[2025-08-02] MEDS ORDERED: POLYMYXIN B SULFATE 500000 UNITS/VIAL ONE (06:38)
[2025-08-02] MEDS ORDERED: LIDOCAINE HCL/EPINEPHRINE 1%-EPI 1:100,000 20ML VIAL ONE (06:38)
[2025-08-02] MEDS ORDERED: FAMOTIDINE 20MG/2ML VIAL IV ONE (07:06)
[2025-08-02] MEDS ORDERED: ONDANSETRON HCL 4MG/2ML INJ ONE ×2 (07:07)
[2025-08-02] MEDS ORDERED: ETOMIDATE 2MG/ML 10ML VIAL IV ONE ×2 (07:07)
[2025-08-02] MEDS ORDERED: PROPOFOL 200MG/20ML VIAL IV ONE ×2 (07:07)
[2025-08-02] MEDS ORDERED: MIDAZOLAM HCL 2 MG/2 ML VIAL ONE ×4 (07:07→07:52)
[2025-08-02] MEDS ORDERED: FENTANYL CITRATE/PF 50MCG/ML 2ML VIAL ONE ×2 (07:08)
[2025-08-02] MEDS ORDERED: FENTANYL CITRATE/PF 50MCG/ML 5ML VIAL ONE ×2 (08:33)
[2025-08-02] MEDS ORDERED: HYDROMORPHONE HCL/PF 2MG/ML INJ ONE ×2 (08:34)
[2025-08-02] MEDS ORDERED: ONDANSETRON HCL 4MG/2ML INJ IV PRN (09:15)
[2025-08-02] MEDS ORDERED: MEPERIDINE HCL/PF 25MG/ML CPJ IV PRN (09:15)
[2025-08-02] MEDS ORDERED: ACETAMINOPHEN 1,000MG/100ML PREMIX IV PRN (09:15)
[2025-08-02] MEDS ORDERED: FAMOTIDINE 20MG/2ML VIAL IV PRN (09:15)
[2025-08-02] MEDS ORDERED: LABETALOL 5MG/ML 4ML INJ IV PRN (09:15)
[2025-08-02] MEDS ORDERED: HYDRALAZINE 20MG/ML VIAL IV PRN ×2 (09:15)
[2025-08-02] MEDS: HYDROMORPHONE HCL/PF 1MG/ML INJ IV PRN (12:34)
[2025-08-02 15:41] LABS: LYMPHOCYTES % MANUAL 4.0 % (20.0-60.0); MONOCYTES % MANUAL 4.0 % (2.0-8.0); NEUTROPHILS % MANUAL 92.0 % (45.0-75.0); PLATELET ESTIMATE NORMAL
[2025-08-02] MEDS: DIPHENHYDRAMINE 50MG/ML VIAL IV SCH (16:00)
[2025-08-02] MEDS: VANCOMYCIN 125MG/2.5ML ORAL SYR PO SCH (21:46)
[2025-08-03] VITALS: BP 120/65; PULSE 100; RESP 19; TEMP 36.4; O2SAT 93
[2025-08-03] MEDS ORDERED: VANCOMYCIN HCL 1GM VIAL PO SCH
[2025-08-03 04:00] VITALS: BP 135/57; PULSE 101; RESP 18; TEMP 36.3; O2SAT 100
[2025-08-03] MEDS ORDERED: KETOROLAC 30MG/ML VIAL IV NR (04:15)
[2025-08-03] MEDS ORDERED: KETOROLAC 30MG/ML VIAL IM NR (04:18)
[2025-08-03] MEDS: KETOROLAC 30MG/ML VIAL IM NR (04:52)
[2025-08-03 08:00] VITALS: BP_SYST 131; BP_SYST 145; BP_DIAS 58; BP_DIAS 75; PULSE 67; PULSE 96; RESP 16; RESP 20; TEMP 36.2; TEMP 36.4; O2SAT 100; O2SAT 95
[2025-08-03] MEDS: HYDROCODONE/ACETAMINOPHEN 5/325MG TABLET ONE (10:17)
[2025-08-03] MEDS: HYDROCODONE/ACETAMINOPHEN 5/325MG TABLET PO PRN (10:24)
[2025-08-03 12:00] VITALS: BP 141/54; PULSE 99; RESP 18; TEMP 36.6; O2SAT 98
[2025-08-03 16:00] VITALS: BP 123/70; PULSE 111; RESP 19; TEMP 36.4; O2SAT 97
[2025-08-03] MEDS: MEROPENEM 500MG/50ML 50 ML IV SCH (18:00)
[2025-08-03 20:00] VITALS: BP 130/72; PULSE 121; RESP 19; TEMP 36.3; O2SAT 98
[2025-08-04] VITALS (18 sets, daily range): BP systolic 118–152; BP diastolic 22–79; PULSE 81–114; RESP 17–20; TEMP 35.8–36.6; O2SAT 92–99
[2025-08-04 12:12] LABS: HEMATOCRIT. 27.3 % (36.0-48.0); HEMOGLOBIN. 8.9 g/dL (12.0-16.0); MEAN PLATELET VOLUME 7.3 fl (7.4-10.4); PLATELET 355 x1000/uL (130-400); RED BLOOD CELL COUNT 3.01 mill/uL (4.2-5.4); RED CELL DISTRIBUTION WIDTH 18.9 % (11.6-14.6)
[2025-08-04 12:24] LABS: CREATININE 4.1 mg/dL (0.6-1.0); UREA NITROGEN BLOOD 57 mg/dL (9-23)
[2025-08-04 12:26] LABS: PHOSPHORUS 1.9 mg/dL (2.5-4.9)
[2025-08-04] MEDS: ONDANSETRON HCL 4MG TABLET PO PRN (13:23)
[2025-08-04] MEDS: MEROPENEM 500MG/50ML 50 ML IV SCH (13:26)
[2025-08-04] MEDS: ACETAMINOPHEN 325MG TABLET PO SCH (13:43)
[2025-08-04] MEDS: TRAMADOL 50MG TABLET PO PRN (18:53)
[2025-08-04] MEDS: AMIKACIN SULFATE 500 MG in DEXT 5% WATER 100 ML IV SCH (21:00)
[2025-08-04] MEDS: HYDROXYZINE 25MG TABLET PO PRN (21:43)
[2025-08-05] VITALS: BP 120/53; PULSE 112; RESP 19; TEMP 36.5; O2SAT 99
[2025-08-05 04:00] VITALS: BP 129/61; PULSE 102; RESP 18; TEMP 36.4; O2SAT 96
[2025-08-05 08:00] VITALS: BP 121/64; PULSE 108; RESP 18; TEMP 36.4; O2SAT 99
[2025-08-05 09:07] LABS: BAND% 10.0 % (1.0-6.0); EOSINOPHILS % MANUAL 1.0 % (0.0-5.0); LYMPHOCYTES % MANUAL 5.0 % (20.0-60.0); MONOCYTES % MANUAL 3.0 % (2.0-8.0); NEUTROPHILS % MANUAL 81.0 % (45.0-75.0); PLATELET ESTIMATE NORMAL
[2025-08-05 12:00] VITALS: BP 108/63; PULSE 105; RESP 20; TEMP 36.6; O2SAT 98
[2025-08-05] MEDS: METOPROLOL TARTRATE 25MG TABLET PO SCH (13:00)
[2025-08-05] MEDS: DIPHENHYDRAMINE 25MG CAPSULE PO NR (13:47)
[2025-08-05 16:00] VITALS: BP 13/64; PULSE 120; RESP 20; TEMP 36.4; O2SAT 98
[2025-08-05 20:38] VITALS: BP 112/83; PULSE 102; RESP 18; TEMP 36.6; O2SAT 95
[2025-08-05] MEDS: NIFEDIPINE XL 30MG TAB PO SCH (21:52)
[2025-08-06] VITALS: BP 124/54; PULSE 93; RESP 18; TEMP 36.2; O2SAT 97
[2025-08-06 04:00] VITALS: BP 120/64; PULSE 88; RESP 18; TEMP 36.4; O2SAT 95
[2025-08-06 08:00] VITALS: BP 110/53; PULSE 82; RESP 18; TEMP 36.1; O2SAT 97
[2025-08-06 12:00] VITALS: BP 135/67; PULSE 83; RESP 18; TEMP 36.1; O2SAT 97
[2025-08-06 16:00] VITALS: BP 136/67; PULSE 79; RESP 18; TEMP 36.2; O2SAT 97
[2025-08-06 20:00] VITALS: BP 150/64; PULSE 82; RESP 16; TEMP 36.4; O2SAT 99
[2025-08-07] VITALS (8 sets, daily range): BP systolic 115–157; BP diastolic 40–75; PULSE 72–98; RESP 15–19; TEMP 33.4–36.7; O2SAT 96–99
[2025-08-07] MEDS: AMIKACIN SULFATE 250 MG in SODIUM CHLORIDE 0.9% 100 ML IV SCH (09:00)
[2025-08-08] VITALS (14 sets, daily range): BP systolic 101–174; BP diastolic 48–76; PULSE 70–104; RESP 14–20; TEMP 35.9–36.55848; O2SAT 91–100
[2025-08-08] MEDS: HYDRALAZINE HCL 25MG TABLET PO SCH (09:00)
[2025-08-08 09:43] LABS: BASOPHILS % 0.4 % (0.0-2.0); EOSINOPHILS % 0.5 % (0.0-5.0); HEMATOCRIT. 29.0 % (36.0-48.0); HEMOGLOBIN. 9.6 g/dL (12.0-16.0); LYMPHOCYTES % 9.0 % (20.0-50.0); MEAN PLATELET VOLUME 7.3 fl (7.4-10.4); MONOCYTES % 3.6 % (2.0-8.0); NEUTROPHILS % 86.5 % (40.0-76.0); PLATELET 335 x1000/uL (130-400); RED BLOOD CELL COUNT 3.15 mill/uL (4.2-5.4); RED CELL DISTRIBUTION WIDTH 19.5 % (11.6-14.6)
[2025-08-08 10:00] LABS: CREATININE 3.9 mg/dL (0.6-1.0); UREA NITROGEN BLOOD 78.0 mg/dL (9-23)
[2025-08-08 10:02] LABS: PHOSPHORUS 2.6 mg/dL (2.5-4.9)
[2025-08-08] MEDS: HYDROCODONE/ACETAMINOPHEN 5/325MG TABLET PO PRN (17:40)
[2025-08-09] VITALS: BP 157/61; PULSE 75; RESP 18; TEMP 36.4; O2SAT 100
[2025-08-09 04:00] VITALS: BP 163/65; PULSE 84; RESP 19; TEMP 36.5; O2SAT 100
[2025-08-09 08:00] VITALS: BP 151/72; PULSE 87; RESP 18; TEMP 35.8; O2SAT 100
[2025-08-09 12:00] VITALS: BP 183/76; PULSE 82; RESP 18; TEMP 36.2; O2SAT 100
[2025-08-09 16:00] VITALS: BP 184/48; PULSE 85; RESP 18; TEMP 36.1; O2SAT 96
[2025-08-09 20:00] VITALS: BP 168/73; PULSE 87; RESP 18; TEMP 36.2; O2SAT 100
[2025-08-10] VITALS (12 sets, daily range): BP systolic 138–180; BP diastolic 54–85; PULSE 75–87; RESP 16–18; TEMP 35.3–36.83628; O2SAT 99–100
[2025-08-10] MEDS ORDERED: NALOXONE HCL 0.4MG/ML VIAL IV PRN (10:45)
[2025-08-10 10:48] LABS: HEMATOCRIT. 31.4 % (36.0-48.0); HEMOGLOBIN. 10.4 g/dL (12.0-16.0); MEAN PLATELET VOLUME 7.6 fl (7.4-10.4); PLATELET 411 x1000/uL (130-400); RED BLOOD CELL COUNT 3.38 mill/uL (4.2-5.4); RED CELL DISTRIBUTION WIDTH 19.4 % (11.6-14.6)
[2025-08-10 11:04] LABS: CREATININE 4.0 mg/dL (0.6-1.0)
[2025-08-10 11:05] LABS: UREA NITROGEN BLOOD 64.0 mg/dL (9-23)
[2025-08-10] MEDS: HYDRALAZINE HCL 50MG TABLET PO SCH (12:27)
[2025-08-10 13:05] LABS: BAND% 5.0 % (1.0-6.0); LYMPHOCYTES % MANUAL 6.0 % (20.0-60.0); MONOCYTES % MANUAL 4.0 % (2.0-8.0); NEUTROPHILS % MANUAL 85.0 % (45.0-75.0); NUCLEATED RED BLOOD CELLS 1 /100 WBC; PLATELET ESTIMATE SLIGHTLY INCREASED
[2025-08-10] MEDS: DIPHENHYDRAMINE 50MG/ML VIAL IV PRN (17:21)
[2025-08-10] MEDS: AMIKACIN SULFATE 250 MG in SODIUM CHLORIDE 0.9% 100 ML IV PRN (18:08)
[2025-08-11] VITALS: BP 165/64; PULSE 75; RESP 18; TEMP 36.1; O2SAT 100
[2025-08-11 04:00] VITALS: BP 169/63; PULSE 81; RESP 18; TEMP 36.4; O2SAT 97
[2025-08-11 08:00] VITALS: BP 174/67; PULSE 84; RESP 18; TEMP 36.4; O2SAT 99
[2025-08-11 12:00] VITALS: BP 140/69; PULSE 81; RESP 18; TEMP 37.2; O2SAT 99
[2025-08-11 16:00] VITALS: BP 145/68; PULSE 84; RESP 19; TEMP 37.3; O2SAT 99
[2025-08-11 20:00] VITALS: BP 153/85; PULSE 110; RESP 20; TEMP 36.5; O2SAT 100
[2025-08-11] MEDS: MELATONIN 3MG TABLET PO NR (21:57)
[2025-08-12] VITALS (11 sets, daily range): BP systolic 116–163; BP diastolic 46–88; PULSE 83–100; RESP 16–20; TEMP 36.3–36.78072; O2SAT 95–100
[2025-08-12] MEDS ORDERED: AMIKACIN SULFATE 250 MG in SODIUM CHLORIDE 0.9% 100 ML IV SCH (06:00)
[2025-08-12] MEDS: DIPHENHYDRAMINE 50MG/ML VIAL IV PRN (08:21)
[2025-08-12 10:06] LABS: HEMATOCRIT. 26.8 % (36.0-48.0); HEMOGLOBIN. 8.7 g/dL (12.0-16.0); MEAN PLATELET VOLUME 7.2 fl (7.4-10.4); PLATELET 405 x1000/uL (130-400); RED BLOOD CELL COUNT 2.90 mill/uL (4.2-5.4); RED CELL DISTRIBUTION WIDTH 19.1 % (11.6-14.6)
[2025-08-12 10:19] LABS: CREATININE 3.4 mg/dL (0.6-1.0); UREA NITROGEN BLOOD 41.0 mg/dL (9-23)
[2025-08-12 10:21] LABS: PHOSPHORUS 2.4 mg/dL (2.5-4.9)
[2025-08-12 14:22] LABS: EOSINOPHILS % MANUAL 1.0 % (0.0-5.0); LYMPHOCYTES % MANUAL 3.0 % (20.0-60.0); MONOCYTES % MANUAL 5.0 % (2.0-8.0); NEUTROPHILS % MANUAL 91.0 % (45.0-75.0)
[2025-08-12 14:23] LABS: PLATELET ESTIMATE NORMAL
[2025-08-13] VITALS: BP 133/62; PULSE 85; RESP 18; TEMP 36.3; O2SAT 100
[2025-08-13 04:00] VITALS: BP 144/66; PULSE 91; RESP 18; TEMP 36.7; O2SAT 100
[2025-08-13 08:00] VITALS: BP 148/60; PULSE 82; RESP 16; TEMP 36.6; O2SAT 96
[2025-08-13] MEDS: SODIUM HYPOCHLORITE 0.125% 473ML SOLUTION TOP SCH (10:09)
[2025-08-13] MEDS: NYSTATIN POWDER 15GM TOP SCH (10:09)
[2025-08-13 11:38] LABS: BASOPHILS % 0.2 % (0.0-2.0); EOSINOPHILS % 0.2 % (0.0-5.0); HEMATOCRIT. 31.4 % (36.0-48.0); HEMOGLOBIN. 10.0 g/dL (12.0-16.0); LYMPHOCYTES % 7.9 % (20.0-50.0); MEAN PLATELET VOLUME 6.8 fl (7.4-10.4); MONOCYTES % 5.4 % (2.0-8.0); NEUTROPHILS % 86.3 % (40.0-76.0); PLATELET 458 x1000/uL (130-400); RED BLOOD CELL COUNT 3.35 mill/uL (4.2-5.4); RED CELL DISTRIBUTION WIDTH 19.5 % (11.6-14.6)
[2025-08-13 12:00] VITALS: BP 148/44; PULSE 80; RESP 18; TEMP 36.5; O2SAT 94
[2025-08-13 12:06] LABS: CREATININE 3.3 mg/dL (0.6-1.0); UREA NITROGEN BLOOD 32 mg/dL (9-23)
[2025-08-13 12:09] LABS: PHOSPHORUS 3.0 mg/dL (2.5-4.9)
[2025-08-13 16:00] VITALS: BP 149/70; PULSE 19; RESP 19; TEMP 36.5; O2SAT 100
[2025-08-13 20:00] VITALS: BP 146/60; PULSE 94; RESP 18; TEMP 36.7; O2SAT 99
[2025-08-14] VITALS: BP 140/56; PULSE 77; RESP 19; TEMP 36.2; O2SAT 98
[2025-08-14 04:00] VITALS: BP 142/43; PULSE 84; RESP 18; TEMP 36.3; O2SAT 95
[2025-08-14] MEDS ORDERED: AMIKACIN SULFATE 250 MG in SODIUM CHLORIDE 0.9% 100 ML IV SCH (06:00)
[2025-08-14 08:00] VITALS: BP 145/70; PULSE 85; RESP 16; TEMP 36.5; O2SAT 100
[2025-08-14 12:00] VITALS: BP 158/61; PULSE 80; RESP 19; TEMP 36.5; O2SAT 100
[2025-08-14] MEDS: TRAMADOL 50MG TABLET PO PRN (14:37)
[2025-08-14 16:00] VITALS: BP 149/60; PULSE 95; RESP 20; TEMP 36.4; O2SAT 100
[2025-08-14] MEDS: LACTULOSE 20G/30ML UDC PO SCH (17:30)
[2025-08-14] MEDS: OXYCODONE HCL 5MG TABLET PO PRN (18:05)
[2025-08-14 20:00] VITALS: BP 142/77; PULSE 99; RESP 18; TEMP 36.5; O2SAT 98
[2025-08-15] VITALS (15 sets, daily range): BP systolic 115–156; BP diastolic 50–75; PULSE 72–99; RESP 16–20; TEMP 36.114–36.7; O2SAT 96–100
[2025-08-15] MEDS: BISACODYL 10MG SUPP PR SCH (09:44)
[2025-08-15] MEDS: AMIKACIN SULFATE 500 MG in SODIUM CHLORIDE 0.9% 100 ML IV SCH (16:56)
[2025-08-16] VITALS: BP 139/55; PULSE 82; RESP 17; TEMP 36.6; O2SAT 99
[2025-08-16 04:00] VITALS: BP 142/55; PULSE 88; RESP 18; TEMP 36.4; O2SAT 98
[2025-08-16 08:00] VITALS: BP 120/60; PULSE 93; RESP 18; TEMP 36.4; O2SAT 100
[2025-08-16 12:00] VITALS: BP 140/72; PULSE 88; RESP 17; TEMP 36.2; O2SAT 99
[2025-08-16 16:00] VITALS: BP 139/64; PULSE 86; RESP 19; TEMP 36.4; O2SAT 99
[2025-08-16 20:00] VITALS: BP 152/70; PULSE 94; RESP 18; TEMP 36.1; O2SAT 100
[2025-08-17] VITALS (13 sets, daily range): BP systolic 111–157; BP diastolic 52–95; PULSE 80–98; RESP 16–20; TEMP 36.2–36.6; O2SAT 95–100
[2025-08-17 16:43] LABS: HEMATOCRIT. 23.3 % (36.0-48.0); HEMOGLOBIN. 7.4 g/dL (12.0-16.0); MEAN PLATELET VOLUME 6.8 fl (7.4-10.4); PLATELET 378 x1000/uL (130-400); RED BLOOD CELL COUNT 2.50 mill/uL (4.2-5.4); RED CELL DISTRIBUTION WIDTH 19.5 % (11.6-14.6)
[2025-08-17] MEDS: AMIKACIN SULFATE 250 MG in SODIUM CHLORIDE 0.9% 100 ML IV PRN (16:47)
[2025-08-17 16:56] LABS: CREATININE 3.9 mg/dL (0.6-1.0); UREA NITROGEN BLOOD 36.0 mg/dL (9-23)
[2025-08-17 17:23] LABS: EOSINOPHILS % MANUAL 1.0 % (0.0-5.0); LYMPHOCYTES % MANUAL 2.0 % (20.0-60.0); MONOCYTES % MANUAL 6.0 % (2.0-8.0); NEUTROPHILS % MANUAL 91.0 % (45.0-75.0); PLATELET ESTIMATE NORMAL
[2025-08-18] VITALS: BP 141/53; PULSE 96; RESP 18; TEMP 36.1; O2SAT 96
[2025-08-18 04:00] VITALS: BP 145/68; PULSE 85; RESP 18; TEMP 36.1; O2SAT 99
[2025-08-18 08:00] VITALS: BP 150/68; PULSE 86; RESP 18; TEMP 36.6; O2SAT 100
[2025-08-18 12:00] VITALS: BP 151/54; PULSE 83; RESP 17; TEMP 36.5; O2SAT 100
[2025-08-18 16:00] VITALS: BP_SYST 111; BP_SYST 176; BP_DIAS 59; BP_DIAS 83; PULSE 75; RESP 18; TEMP 37; O2SAT 98
[2025-08-18 20:00] VITALS: BP 177/77; PULSE 93; RESP 18; TEMP 36.7; O2SAT 100
[2025-08-19] VITALS (11 sets, daily range): BP systolic 128–171; BP diastolic 52–91; PULSE 83–96; RESP 16–20; TEMP 36.5–36.9; O2SAT 98–100
[2025-08-19] MEDS ORDERED: VANCOMYCIN 1.5GM PMX (XELLIA) 300 ML IV PRN (09:00)
[2025-08-19] MEDS: DIPHENHYDRAMINE 25MG CAPSULE PO PRN (15:25)
[2025-08-19] MEDS: AMIKACIN SULFATE 250 MG in SODIUM CHLORIDE 0.9% 100 ML IV PRN (15:51)
[2025-08-19] MEDS: VANCOMYCIN IV PRN (16:31)
[2025-08-19] MEDS: DEXT 5% IV PRN (16:31)
[2025-08-19] MEDS: WATER IV PRN (16:31)
[2025-08-19] MEDS: OXYCODONE HCL 5MG TABLET PO PRN (19:00)
[2025-08-19] MEDS: TRAMADOL 50MG TABLET PO PRN (23:49)
[2025-08-20] VITALS: BP 147/58; PULSE 83; RESP 20; TEMP 37; O2SAT 100
[2025-08-20 04:18] VITALS: BP 139/60; PULSE 87; RESP 18; TEMP 37.1; O2SAT 100
[2025-08-20 08:00] VITALS: BP 162/68; PULSE 96; RESP 18; TEMP 36.7
[2025-08-20 09:30] VITALS: BP 152/68
[2025-08-20 20:00] VITALS: BP 144/51; PULSE 64; RESP 18; TEMP 36.7; O2SAT 96
[2025-08-20] MEDS: POLYETHYLENE GLYCOL 3350 (17GM) 1 DOSE PACK PO SCH (21:00)
[2025-08-21] VITALS (15 sets, daily range): BP systolic 112–159; BP diastolic 37–96; PULSE 82–99; RESP 16–20; TEMP 36.1–36.55848; O2SAT 96–100
[2025-08-21 06:53] LABS: BASOPHILS % 0.2 % (0.0-2.0); EOSINOPHILS % 0.5 % (0.0-5.0); HEMATOCRIT. 28.8 % (36.0-48.0); HEMOGLOBIN. 9.1 g/dL (12.0-16.0); LYMPHOCYTES % 7.3 % (20.0-50.0); MEAN PLATELET VOLUME 7.4 fl (7.4-10.4); MONOCYTES % 7.3 % (2.0-8.0); NEUTROPHILS % 84.7 % (40.0-76.0); PLATELET 327 x1000/uL (130-400); RED BLOOD CELL COUNT 2.97 mill/uL (4.2-5.4); RED CELL DISTRIBUTION WIDTH 20.2 % (11.6-14.6)
[2025-08-21 07:08] LABS: CREATININE 3.4 mg/dL (0.6-1.0)
[2025-08-21 07:10] LABS: UREA NITROGEN BLOOD 18 mg/dL (9-23)
[2025-08-21 07:12] LABS: PHOSPHORUS 2.6 mg/dL (2.5-4.9)
[2025-08-21] MEDS ORDERED: VANCOMYCIN 1GM PMX (XELLIA) 200 ML IV PRN (12:00)
[2025-08-21] MEDS: VANCOMYCIN 125MG/2.5ML ORAL SYR PO SCH (17:00)
[2025-08-21] MEDS ORDERED: VANCOMYCIN HCL 1GM VIAL PO SCH (18:00)
[2025-08-22] VITALS: BP 125/50; PULSE 90; RESP 18; TEMP 36.1; O2SAT 98
[2025-08-22 04:00] VITALS: BP 137/65; PULSE 93; RESP 17; TEMP 36.3; O2SAT 97
[2025-08-22 08:31] VITALS: BP 158/61; PULSE 120; RESP 16; TEMP 36.7; O2SAT 98
[2025-08-22 08:44] VITALS: PULSE 120
[2025-08-22] MEDS: OXYCODONE HCL 5MG TABLET PO SCH (08:50)
== END 2025-08-22 12:28 | disposition left against medical advice (07) | DRG 305 ==
LOC: ER 16:20 → ENRESERV 19:08 → 6EST 19:41 → 5WST 06-08 00:17 → 6EST 06-08 21:50 → 8WST 06-14 21:30 → 6EST 06-21 12:52 → 6WST 07-21 13:07 → 8EST 07-27 10:29
PROVIDERS: ADMIT Internal Medicine; ATTEND Internal Medicine
PROC: 02H633Z Insertion of Infusion Device into Right Atrium, Percutaneous Approach (ICD-10-PCS; 2025-06-06)
PROC: B5181ZA Fluoroscopy of Superior Vena Cava using Low Osmolar Contrast, Guidance (ICD-10-PCS; 2025-06-06)
PROC: B548ZZA Ultrasonography of Superior Vena Cava, Guidance (ICD-10-PCS; 2025-06-06)
PROC: 5A1D70Z Performance of Urinary Filtration, Intermittent, Less than 6 Hours Per Day (ICD-10-PCS; 2025-06-07)
PROC: 5A1D70Z Performance of Urinary Filtration, Intermittent, Less than 6 Hours Per Day (ICD-10-PCS; 2025-06-09)
PROC: 5A1D70Z Performance of Urinary Filtration, Intermittent, Less than 6 Hours Per Day (ICD-10-PCS; 2025-06-11)
PROC: 30233N1 Transfusion of Nonautologous Red Blood Cells into Peripheral Vein, Percutaneous Approach (ICD-10-PCS; 2025-06-13)
PROC: 5A1D70Z Performance of Urinary Filtration, Intermittent, Less than 6 Hours Per Day (ICD-10-PCS; 2025-06-13)
PROC: 4A02XM4 Measurement of Cardiac Total Activity, External Approach (ICD-10-PCS; 2025-06-13)
PROC: 3E073KZ Introduction of Other Diagnostic Substance into Coronary Artery, Percutaneous Approach (ICD-10-PCS; 2025-06-13)
PROC: 02H633Z Insertion of Infusion Device into Right Atrium, Percutaneous Approach (ICD-10-PCS; 2025-06-14)
PROC: B548ZZA Ultrasonography of Superior Vena Cava, Guidance (ICD-10-PCS; 2025-06-14)
PROC: 5A1D70Z Performance of Urinary Filtration, Intermittent, Less than 6 Hours Per Day (ICD-10-PCS; 2025-06-14)
PROC: 5A1D70Z Performance of Urinary Filtration, Intermittent, Less than 6 Hours Per Day (ICD-10-PCS; 2025-06-16)
PROC: 5A1D70Z Performance of Urinary Filtration, Intermittent, Less than 6 Hours Per Day (ICD-10-PCS; 2025-06-18)
PROC: 0QBD0ZZ Excision of Right Patella, Open Approach (ICD-10-PCS; principal; 2025-06-19)
PROC: 0Q8 Lower Bones, Division (ICD-10-PCS; 2025-06-19)
PROC: 01S Peripheral Nervous System, Reposition (ICD-10-PCS; 2025-06-19)
PROC: 5A1D70Z Performance of Urinary Filtration, Intermittent, Less than 6 Hours Per Day (ICD-10-PCS; 2025-06-20)
PROC: 5A1D70Z Performance of Urinary Filtration, Intermittent, Less than 6 Hours Per Day (ICD-10-PCS; 2025-06-23)
PROC: 5A1D70Z Performance of Urinary Filtration, Intermittent, Less than 6 Hours Per Day (ICD-10-PCS; 2025-06-26)
PROC: 5A1D70Z Performance of Urinary Filtration, Intermittent, Less than 6 Hours Per Day (ICD-10-PCS; 2025-06-28)
PROC: 5A1D70Z Performance of Urinary Filtration, Intermittent, Less than 6 Hours Per Day (ICD-10-PCS; 2025-06-29)
PROC: 5A1D70Z Performance of Urinary Filtration, Intermittent, Less than 6 Hours Per Day (ICD-10-PCS; 2025-07-01)
PROC: 5A1D70Z Performance of Urinary Filtration, Intermittent, Less than 6 Hours Per Day (ICD-10-PCS; 2025-07-03)
PROC: 5A1D70Z Performance of Urinary Filtration, Intermittent, Less than 6 Hours Per Day (ICD-10-PCS; 2025-07-05)
PROC: 5A1D70Z Performance of Urinary Filtration, Intermittent, Less than 6 Hours Per Day (ICD-10-PCS; 2025-07-07)
PROC: 5A1D70Z Performance of Urinary Filtration, Intermittent, Less than 6 Hours Per Day (ICD-10-PCS; 2025-07-10)
PROC: 5A1D70Z Performance of Urinary Filtration, Intermittent, Less than 6 Hours Per Day (ICD-10-PCS; 2025-07-12)
PROC: 5A1D70Z Performance of Urinary Filtration, Intermittent, Less than 6 Hours Per Day (ICD-10-PCS; 2025-07-14)
PROC: 5A1D70Z Performance of Urinary Filtration, Intermittent, Less than 6 Hours Per Day (ICD-10-PCS; 2025-07-17)
PROC: 5A1D70Z Performance of Urinary Filtration, Intermittent, Less than 6 Hours Per Day (ICD-10-PCS; 2025-07-19)
PROC: 5A1D70Z Performance of Urinary Filtration, Intermittent, Less than 6 Hours Per Day (ICD-10-PCS; 2025-07-21)
PROC: 5A1D70Z Performance of Urinary Filtration, Intermittent, Less than 6 Hours Per Day (ICD-10-PCS; 2025-07-24)
PROC: 5A1D70Z Performance of Urinary Filtration, Intermittent, Less than 6 Hours Per Day (ICD-10-PCS; 2025-07-26)
PROC: 5A1D70Z Performance of Urinary Filtration, Intermittent, Less than 6 Hours Per Day (ICD-10-PCS; 2025-07-29)
PROC: 05HY33Z Insertion of Infusion Device into Upper Vein, Percutaneous Approach (ICD-10-PCS; 2025-07-31)
PROC: B54MZZA Ultrasonography of Right Upper Extremity Veins, Guidance (ICD-10-PCS; 2025-07-31)
PROC: B51M1ZA Fluoroscopy of Right Upper Extremity Veins using Low Osmolar Contrast, Guidance (ICD-10-PCS; 2025-07-31)
PROC: 5A1D70Z Performance of Urinary Filtration, Intermittent, Less than 6 Hours Per Day (ICD-10-PCS; 2025-07-31)
PROC: 0Y6C0Z3 Detachment at Right Upper Leg, Low, Open Approach (ICD-10-PCS; 2025-08-02)
PROC: 5A1D70Z Performance of Urinary Filtration, Intermittent, Less than 6 Hours Per Day (ICD-10-PCS; 2025-08-02)
PROC: 5A1D70Z Performance of Urinary Filtration, Intermittent, Less than 6 Hours Per Day (ICD-10-PCS; 2025-08-04)
PROC: 5A1D70Z Performance of Urinary Filtration, Intermittent, Less than 6 Hours Per Day (ICD-10-PCS; 2025-08-07)
PROC: 5A1D70Z Performance of Urinary Filtration, Intermittent, Less than 6 Hours Per Day (ICD-10-PCS; 2025-08-08)
PROC: 5A1D70Z Performance of Urinary Filtration, Intermittent, Less than 6 Hours Per Day (ICD-10-PCS; 2025-08-10)
PROC: 5A1D70Z Performance of Urinary Filtration, Intermittent, Less than 6 Hours Per Day (ICD-10-PCS; 2025-08-12)
PROC: 5A1D70Z Performance of Urinary Filtration, Intermittent, Less than 6 Hours Per Day (ICD-10-PCS; 2025-08-15)
PROC: 5A1D70Z Performance of Urinary Filtration, Intermittent, Less than 6 Hours Per Day (ICD-10-PCS; 2025-08-17)
PROC: 5A1D70Z Performance of Urinary Filtration, Intermittent, Less than 6 Hours Per Day (ICD-10-PCS; 2025-08-19)
PROC: 5A1D70Z Performance of Urinary Filtration, Intermittent, Less than 6 Hours Per Day (ICD-10-PCS; 2025-08-21)
DX: T87.43 Infection of amputation stump, right lower extremity (principal); A41.9 Sepsis, unspecified organism; I13.2 Hypertensive heart and chronic kidney disease with heart failure and with stage 5 chronic kidney disease, or end stage renal disease; L89.894 Pressure ulcer of other site, stage 4; E83.39 Other disorders of phosphorus metabolism; D62 Acute posthemorrhagic anemia; L89.159 Pressure ulcer of sacral region, unspecified stage; N18.6 End stage renal disease; D63.1 Anemia in chronic kidney disease; T87.53 Necrosis of amputation stump, right lower extremity; I50.32 Chronic diastolic (congestive) heart failure; E87.1 Hypo-osmolality and hyponatremia; E03.9 Hypothyroidism, unspecified; L97.119 Non-pressure chronic ulcer of right thigh with unspecified severity; E11.22 Type 2 diabetes mellitus with diabetic chronic kidney disease; E78.5 Hyperlipidemia, unspecified; E11.42 Type 2 diabetes mellitus with diabetic polyneuropathy; E87.6 Hypokalemia; I25.10 Atherosclerotic heart disease of native coronary artery without angina pectoris; I25.2 Old myocardial infarction; E11.51 Type 2 diabetes mellitus with diabetic peripheral angiopathy without gangrene; K21.9 Gastro-esophageal reflux disease without esophagitis; R53.81 Other malaise; E66.9 Obesity, unspecified; N39.0 Urinary tract infection, site not specified; I70.8 Atherosclerosis of other arteries; B96.89 Other specified bacterial agents as the cause of diseases classified elsewhere; K59.00 Constipation, unspecified; E87.5 Hyperkalemia; F32.A Depression, unspecified; J44.9 Chronic obstructive pulmonary disease, unspecified; T87.89 Other complications of amputation stump; I42.9 Cardiomyopathy, unspecified; T82.818A Embolism due to vascular prosthetic devices, implants and grafts, initial encounter; Z68.45 Body mass index [BMI] 70 or greater, adult; Z89.612 Acquired absence of left leg above knee; Z91.041 Radiographic dye allergy status; Z99.2 Dependence on renal dialysis; Z88.3 Allergy status to other anti-infective agents; Z95.1 Presence of aortocoronary bypass graft; G54.6 Phantom limb syndrome with pain; Z79.4 Long term (current) use of insulin; Z78.9 Other specified health status; Z87.891 Personal history of nicotine dependence; K80.00 Calculus of gallbladder with acute cholecystitis without obstruction; Z82.49 Family history of ischemic heart disease and other diseases of the circulatory system; Z91.199 Patient's noncompliance with other medical treatment and regimen due to unspecified reason; Y83.2 Surgical operation with anastomosis, bypass or graft as the cause of abnormal reaction of the patient, or of later complication, without mention of misadventure at the time of the procedure; Y83.8 Other surgical procedures as the cause of abnormal reaction of the patient, or of later complication, without mention of misadventure at the time of the procedure; Y92.89 Other specified places as the place of occurrence of the external cause; Z53.29 Procedure and treatment not carried out because of patient's decision for other reasons
CPT/HCPCS: 36415; 36573; 71045; 73552; 73700; 74018; 74176; 75635; 76700; 76881; 78452; 80048; 80053; 80061; 80076; 80150; 80202; 80305; 81003; 82550; 82553; 82962; 83036; 83605; 83735; 83880; 83930; 83935; 84100; 84132; 84145; 84300; 84439; 84443; 84484; 85014; 85018; 85025; 85027; 85044; 85379; 85651; 86141; 86705; 86706; 86709; 86850; 86900; 86920; 87070; 87075; 87076; 87077; 87186; 87340; 88307; 88311; 90935; 93005; 93017; 93306; 93923; 93970; 94640; 96374; 97110; 97162; 97166; 97168; 97530; 97535; 99285; A4606; A6449; A9500; C1725; C1769; J0278; J0360; J0612; J0665; J0696; J0885; J1171; J1200; J1265; J1308; J1644; J1815; J1885; J2003; J2004; J2185; J2250; J2270; J2405; J2543; J2704; J2785; J3010; J3373; J3480; J3490; J7042; J7050; J7060; J7512; P9016; Q0162; Q0163; Q9967; J0131